=== PATIENT | female | born 1990 | race Caucasian/White ===

== ENCOUNTER 2016-10-11 22:16 | Emergency (ER) | payer OTHER ==
[2016-10-11] MEDS ORDERED: ONDANSETRON 4MG/2ML VIAL (J2405) As Ordered ONE (23:47)
[2016-10-12 00:27] LABS: MEAN CORPUSCULAR HEMOGLOBIN 24.5 pg (27.0-33.0); MEAN CORPUSCULAR HGB CONC 30.5 g/dl (32.0-36.5); MEAN CORPUSCULAR VOLUME 80.3 fl (80.0-96.0); PLATELET COUNT, AUTOMATED 335 k/mm3 (150-450); RED CELL DISTRIBUTION WIDTH 17.2 % (11.5-14.5); WHITE BLOOD COUNT 8.1 K/mm3 (4.0-10.0)
[2016-10-12 00:28] LABS: BASO % 0.9 % (0.0-1.0); EOS % 4.1 % (0.0-3.0); LYMPH % 27.5 % (24.0-44.0); MONO % 3.9 % (0.0-5.0); NEUTROPHILS % 62.6 % (36.0-66.0)
[2016-10-12 00:29] LABS: BASO # 0.1 K/mm3 (0.0-0.2); EOS # 0.3 K/mm3 (0.0-0.50); LARGE UNSTAINED CELL # 0.1 K/mm3 (0.0-0.4); LYMPH # 2.2 K/mm3 (1.5-6.5); MONO # 0.3 K/mm3 (0.0-0.8); NEUTROPHILS # 5.1 K/mm3 (1.8-7.7)
[2016-10-12 00:40] LABS: ANION GAP 9 MEQ/L (8-16); BLOOD UREA NITROGEN 11 MG/DL (7-18); CARBON DIOXIDE LEVEL 25 MEQ/L (21-32); CHLORIDE LEVEL 103 MEQ/L (98-107); CREATININE FOR GFR 0.94 MG/DL (0.55-1.02); GLOMERULAR FILTRATION RATE > 60.0 (>60); GLUCOSE, FASTING 113 MG/DL (70-105); POTASSIUM SERUM 4.4 MEQ/L (3.5-5.1); SODIUM LEVEL 137 MEQ/L (136-145)
[2016-10-12 00:41] LABS: ALBUMIN 3.3 GM/DL (3.2-5.2); ALKALINE PHOSPHATASE 63 U/L (45-117); ALT/SGPT 31 U/L (12-78); AST/SGOT 23 U/L (15-37); BILIRUBIN,DIRECT 0.2 MG/DL (0.0-0.2); CALCIUM LEVEL 8.5 MG/DL (8.5-10.1); TOTAL PROTEIN 7.4 GM/DL (6.4-8.2)
--- NOTE | 2016-10-12 02:04 | EDDOCDS ---
Physician Documentation [facility] Name: Renae Meraz Age: 26 yrs Sex: Female : 1990 Arrival Date: 10/11/2016 Time: 22:16 Bed I4 / M4 Private MD: Ana Shi ANP- Disposition: 10/12/16 01:54 Discharged to Home/Self Care. Impression: Infectious gastroenteritis and colitis, unspecified - VERSUS FOOD POISONING. - Condition is Stable. - Discharge Instructions: Diarrhea, Nausea and Vomiting. - Prescriptions for Zofran 4 mg Oral Tablet - take 1 tablet by ORAL route 4 times per day As needed; 10 tablet. - Medication Reconciliation, Work Release Form - 1 day, Local Pharmacy Hours form. - Follow up: Ana Shi; When: 1 - 2 days; Reason: Recheck today's complaints, Continuance of care. - Problem is new. - Symptoms have improved. Historical: - Allergies: No known drug Allergies; - Home Meds: 1. none - PMHx: Asthma; Depression; GERD; Heavy vaginal bleeding; Hypertension; - PSHx: ; - Social history: Smoking status: Patient uses tobacco products, current some day smoker. No barriers to communication noted, The patient speaks fluent [place], Speaks appropriately for age. - Family history: No immediate family members are acutely ill. - : The pt / caregiver states he / she is not on anticoagulants. Home medication list is obtained from the patient. - Exposure Risk Screening:: None identified. RN TRANSITIONAL: 10/11 22:21 LMP 09/05/2016 cz Vital Signs: 22:18 BP 163 / 96; Pulse 100; Resp 18 S; Temp 97.2(O); Pulse Ox 97% on R/A; Weight 210.92 kg gr2 / 465 lbs (R); Height 4 ft. 11 in. (149.86 cm) (R); Pain 6/10; 10/12 01:57 BP 135 / 71; Pulse 85; Resp 18; Temp 98.6; Pulse Ox 98% ; Pain 5/10; ajs 10/11 22:18 Body Mass Index 93.92 (210.92 kg, 149.86 cm) gr2 MDM: 10/11 23:44 NS 0.9% 1000 ml IV at bolus once ordered. le 23:44 NS 0.9% 1000 ml IV at 100 mL/hr continuous ordered. le 23:44 Ondansetron 4 mg IVP once ordered. le 23:44 IV Saline Lock ordered. le 23:44 Undress patient appropriately for examination ordered. le 23:45 Basic Metabolic Profile Ordered. EDMS 23:45 CBC with Diff Ordered. EDMS 23:45 Lipase Ordered. EDMS 23:45 Liver Profile Ordered. EDMS 23:45 NOTHING BY MOUTH+DIET ordered. EDMS 23:46 GASTROINTESTINAL (GI) PANEL Ordered. EDMS 10/12 00:20 Financial registration complete. hs2 00:31 CBC with Diff Reviewed. le 00:46 Basic Metabolic Profile Reviewed. le 00:46 Lipase Reviewed. le 00:46 Liver Profile Reviewed. le 00:46 Fluid Challenge ordered. le Administered Medications: 00:01 Drug: NS 0.9% 1000 ml [sodium chloride 0.9 % injection solution] Route: IV; Rate: dsf bolus; Site: left antecubital; 01:18 Follow up: IV Status: Completed infusion sls1 00:01 Drug: Ondansetron 4 mg [ondansetron HCl 2 mg/mL intravenous solution (2 mL)] Route: dsf IVP; Site: left antecubital; 01:18 Follow up: Response: Nausea is resolved sls1 01:18 Drug: NS 0.9% 1000 ml [sodium chloride 0.9 % intravenous solution] Route: IV; Rate: 100 sls1 mL/hr; Site: left antecubital; Signatures: Dispatcher [employer] EDLA Peter Shine RN RN cz Westcott, Lisa, CLAY BURNER CLAY BURNER Lizzeth Marmolejo RN RN sls1 Oscar Corrales, RPA-C [id number] Irish Garcia, Reg Reg hs2 Oneyda Benito RN dsf The chart was reviewed and I authenticate all verbal orders and agree with the evaluation and treatment provided.Corrections: (The following items were deleted from the chart) 10/11 23:46 23:45 GASTROINTESTINAL (GI) PANEL+RENETTA ordered. EDMS EDMS MTDD
--- NOTE | 2016-10-12 02:04 | EDDOCDS ---
Nurse's Notes [facility] Name: Renae Meraz Age: 26 yrs Sex: Female : 1990 Arrival Date: 10/11/2016 Time: 22:16 Bed I4 / M4 Private MD: Ana Shi ANP- Diagnosis: Infectious gastroenteritis and colitis, unspecified-VERSUS FOOD POISONING Presentation: 10/11 22:20 Presenting complaint: Patient states: nausea and vomiting since last night abdominal cz pain with eating. Adult Sepsis Screening: The patient does not have new or worsening altered mentation. Patient's respiratory rate is less than 22. Systolic blood pressure is greater than 100. Patient has a qSOFA score of 0- Negative Sepsis Screen. Suicide/Homicide risk assessment- the patient denies having any suicidal and/or homicidal ideations and does not present with any other emotional, behavioral or mental health complaints. Status: Patient is not a veterans service representative or dependent. Transition of care: patient was not received from another setting of care. 22:20 Acuity: JUAN Level 3 cz 22:20 Method Of Arrival: Walkin/Carried/Asstd cz Triage Assessment: 22:21 General: Appears uncomfortable. Pain: Location: abdomen Pain currently is 6 out of 10 cz on a pain scale. At worst was 10 out of 10 on a pain scale. HIV screening NA for this visit Offered previously. 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 none - PMHx: Asthma; Depression; GERD; Heavy vaginal bleeding; Hypertension; - PSHx: ; - Social history: Smoking status: Patient uses tobacco products, current some day smoker. No barriers to communication noted, The patient speaks fluent [place], Speaks appropriately for age. - Family history: No immediate family members are acutely ill. - : The pt / caregiver states he / she is not on anticoagulants. Home medication list is obtained from the patient. - Exposure Risk Screening:: None identified. Screenin/18 02:01 Screening information is obtained from the patient. Fall risk: No risks identified. sls1 Assistance ADL's: requires no assistance with activities of daily living. Abuse/DV Screen: The patient / caregiver reports he/she is: not in a situation that causes fear, pain or injury. Nutritional screening: No deficits noted. Advance Directives: Further advance directive information is declined. home support is adequate. Assessment: 00:01 Adult Sepsis Screening: The patient does not have new or worsening altered mentation. dsf Patient's respiratory rate is less than 22. Systolic blood pressure is greater than 100. Patient has a qSOFA score of 0- Negative Sepsis Screen. General: Appears in no apparent distress, Behavior is appropriate for age, cooperative. Pain: Location: abdomen Pain currently is 8 out of 10 on a pain scale. Quality of pain is described as crampy, sharp, Pain began today. Neurological: Level of Consciousness is awake, alert, Oriented to person, place, time. Cardiovascular: Capillary refill < 3 seconds. Respiratory: Airway is patent Respiratory effort is even, unlabored, Respiratory pattern is regular, symmetrical. GI: Abdomen is obese, Reports diarrhea, nausea, vomiting, Pain is 8 out of 10 on a pain scale. Derm: Skin is pink, warm & dry. 01:18 Reassessment: Patient appears in no apparent distress at this time. Patient states sls1 feeling better. IV fluids completed, pt resting at rounds denies needs or complaints will continue to assess. GI: Bowel sounds present X 4 quads. Abd is soft and non tender X 4 quads. Reports. 02:01 General: Appears in no apparent distress, Discharge instructions reviewed with pt sls1 including medication use and follow up, pt verbalizes understanding, work note given, pt d/c home via medicaid cab. Neurological: No deficits noted. Respiratory: No deficits noted. Vital Signs: 10/11 22:18 BP 163 / 96; Pulse 100; Resp 18 S; Temp 97.2(O); Pulse Ox 97% on R/A; Weight 210.92 kg gr2 (R); Height 4 ft. 11 in. (149.86 cm) (R); Pain 6/10; 10/12 01:57 BP 135 / 71; Pulse 85; Resp 18; Temp 98.6; Pulse Ox 98% ; Pain 5/10; ajs 10/11 22:18 Body Mass Index 93.92 (210.92 kg, 149.86 cm) gr2 Vitals: 10/11 22:18 Log In Time: October 11, 2016 at 22:18. gr2 ED Course: 22:18 Patient visited by Annika Wilkerson. gr2 22:18 Ana Shi is Private Physician. gr2 22:18 Patient moved to Waiting gr2 22:19 Patient visited by Annika Wilkerson. gr2 22:19 Patient moved to Pre RCE gr2 22:21 Triage Initiated cz 23:38 Angela Rosenthal FNP is PHCP. le 23:38 Patient moved to Triage 3 af2 23:40 Patient visited by Angela Rosenthal FNP. le 23:40 Patient visited by Angela Rosenthal FNP. le 23:44 Patient moved to I4 / M4 sls1 10/12 00:01 Basic Metabolic Profile Sent. dsf 00:01 CBC with Diff Sent. dsf 00:01 Liver Profile Sent. dsf 00:01 Lipase Sent. dsf 00:02 Patient visited by Oneyda Benito RN. dsf 00:02 Inserted saline lock: 20 gauge in left antecubital area The patient tolerated the dsf procedure well. 01:02 PHCP role handed off by Angela Rosenthal FNP ck7 01:02 Oscar Corrales RPA-C is PHCP. ck7 01:02 Bryan Fontana DO is Attending Physician. ck7 01:06 Patient visited by Oscar Corrales RPA-C. ck7 01:19 Patient visited by Lizzeth Murray RN. sls1 01:53 Patient visited by Oscar Corrales RPA-C. ck7 01:54 Ana Shi is Referral Physician. ck7 01:57 Patient visited by Tiffanie Stewart. ajs 02:01 The patient / caregiver is instructed regarding the plan of care and ED course. Patient sls1 has correct armband on for positive identification. Placed in gown. 02:01 Discontinued lock intact, bleeding controlled, pressure dressing applied, No sls1 redness/swelling at site. No procedures done that require assistance. Administered Medications: 00:01 Drug: NS 0.9% 1000 ml [sodium chloride 0.9 % injection solution] Route: IV; Rate: dsf bolus; Site: left antecubital; :18 Follow up: IV Status: Completed infusion sls1 00:01 Drug: Ondansetron 4 mg [ondansetron HCl 2 mg/mL intravenous solution (2 mL)] Route: dsf IVP; Site: left antecubital; 01:18 Follow up: Response: Nausea is resolved sls1 01:18 Drug: NS 0.9% 1000 ml [sodium chloride 0.9 % intravenous solution] Route: IV; Rate: 100 sls1 mL/hr; Site: left antecubital; Order Results: Lab Order: Basic Metabolic Profile; SPEC'M 10/11/16 23:59 Test: GLUCOSE, FASTING; Value: 113; Range: 70-105; Abnormal: Above high normal; Units: MG/DL; Status: F Test: BLOOD UREA NITROGEN; Value: 11; Range: 7-18; Units: MG/DL; Status: F Test: CREATININE FOR GFR; Value: 0.94; Range: 0.55-1.02; Units: MG/DL; Status: F Test: GLOMERULAR FILTRATION RATE; Value: > 60.0; Range: >60; Status: F Test: SODIUM LEVEL; Value: 137; Range: 136-145; Units: MEQ/L; Status: F Test: POTASSIUM SERUM; Value: 4.4; Range: 3.5-5.1; Units: MEQ/L; Status: F Test: CHLORIDE LEVEL; Value: 103; Range: 98-107; Units: MEQ/L; Status: F Test: CARBON DIOXIDE LEVEL; Value: 25; Range: 21-32; Units: MEQ/L; Status: F Test: ANION GAP; Value: 9; Range: 8-16; Units: MEQ/L; Status: F Test: CALCIUM LEVEL; Value: 8.5; Range: 8.5-10.1; Units: MG/DL; Status: F Test Note: ; Units are mL/min/1.73 m2 Chronic Kidney Disease Staging per NKF: Stage I & II GFR >=60 Normal to Mildly Decreased Stage III GFR 30-59 Moderately Decreased Stage IV GFR 15-29 Severely Decreased Stage V GFR <15 Very Little GFR Left ESRD GFR <15 on CANTEEN ATTENDANT Lab Order: CBC with Diff; SPEC'M 10/11/16 23:59 Test: WHITE BLOOD COUNT; Value: 8.1; Range: 4.0-10.0; Units: K/mm3; Status: F Test: RED BLOOD COUNT; Value: 5.19; Range: 4.00-5.40; Units: M/mm3; Status: F Test: HEMOGLOBIN; Value: 12.7; Range: 12.0-16.0; Units: g/dl; Status: F Test: HEMATOCRIT; Value: 41.7; Range: 36.0-47.0; Units: %; Status: F Test: MEAN CORPUSCULAR VOLUME; Value: 80.3; Range: 80.0-96.0; Units: fl; Status: F Test: MEAN CORPUSCULAR HEMOGLOBIN; Value: 24.5; Range: 27.0-33.0; Abnormal: Below low normal; Units: pg; Status: F Test: MEAN CORPUSCULAR HGB CONC; Value: 30.5; Range: 32.0-36.5; Abnormal: Below low normal; Units: g/dl; Status: F Test: RED CELL DISTRIBUTION WIDTH; Value: 17.2; Range: 11.5-14.5; Abnormal: Above high normal; Units: %; Status: F Test: PLATELET COUNT, AUTOMATED; Value: 335; Range: 150-450; Units: k/mm3; Status: F Test: NEUTROPHILS %; Value: 62.6; Range: 36.0-66.0; Units: %; Status: F Test: LYMPH %; Value: 27.5; Range: 24.0-44.0; Units: %; Status: F Test: MONO %; Value: 3.9; Range: 0.0-5.0; Units: %; Status: F Test: EOS %; Value: 4.1; Range: 0.0-3.0; Abnormal: Above high normal; Units: %; Status: F Test: BASO %; Value: 0.9; Range: 0.0-1.0; Units: %; Status: F Test: LARGE UNSTAINED CELL %; Value: 1.0; Range: 0.0-4.0; Units: %; Status: F Test: NEUTROPHILS #; Value: 5.1; Range: 1.8-7.7; Units: K/mm3; Status: F Test: LYMPH #; Value: 2.2; Range: 1.5-6.5; Units: K/mm3; Status: F Test: MONO #; Value: 0.3; Range: 0.0-0.8; Units: K/mm3; Status: F Test: EOS #; Value: 0.3; Range: 0.0-0.50; Units: K/mm3; Status: F Test: BASO #; Value: 0.1; Range: 0.0-0.2; Units: K/mm3; Status: F Test: LARGE UNSTAINED CELL #; Value: 0.1; Range: 0.0-0.4; Units: K/mm3; Status: F Lab Order: Lipase; SPEC'M 10/11/16 23:59 Test: LIPASE; Value: 63; Range: 73-393; Abnormal: Below low normal; Units: U/L; Status: F Lab Order: Liver Profile; SPEC'M 10/11/16 23:59 Test: AST/SGOT; Value: 23; Range: 15-37; Units: U/L; Status: F Test: ALT/SGPT; Value: 31; Range: 12-78; Units: U/L; Status: F Test: ALKALINE PHOSPHATASE; Value: 63; Range: 45-117; Units: U/L; Status: F Test: BILIRUBIN,TOTAL; Value: 1.0; Range: 0.2-1.0; Units: MG/DL; Status: F Test: BILIRUBIN,DIRECT; Value: 0.2; Range: 0.0-0.2; Units: MG/DL; Status: F Test: TOTAL PROTEIN; Value: 7.4; Range: 6.4-8.2; Units: GM/DL; Status: F Test: ALBUMIN; Value: 3.3; Range: 3.2-5.2; Units: GM/DL; Status: F Test: ALBUMIN/GLOBULIN RATIO; Value: 0.80; Range: 1.00-1.93; Abnormal: Below low normal; Status: F Outcome: 01:54 Discharge ordered by Provider. ck7 02:01 Discharge Assessment: Patient awake, alert and oriented x 3. No cognitive and/or sls1 functional deficits noted. Patient verbalized understanding of disposition instructions. patient administered narcotics - no. The following High Risk Discharge criteria are identified: None. Discharged to home via medicaid cab. Condition: stable. Discharge instructions given to patient, Instructed on discharge instructions, follow up and referral plans. medication usage, Demonstrated understanding of instructions, medications, Pt was receptive of discharge instructions/ teaching. Prescriptions given X 1, Work note provided to patient. No special radiology studies were completed. Property :Personal belongings accompany Pt. 02:03 Patient left the ED. sls1 Signatures: Peter Shine, RN RN Angela Jose, SENIOR LINUX UNIX ENGINEER Oneyda Mauro,RN RN Tiffanie Farmer Shannon RN RN sls1 Oscar Corrales, RPA-C [id number] Annika Wilkerson 2 Kadie LenzRN RN af2 MTDD
--- NOTE | 2016-10-14 03:04 | EDDOCDS ---
Nurse's Notes [facility] Name: Renae Meraz Age: 26 yrs Sex: Female : 1990 Arrival Date: 10/11/2016 Time: 22:16 Bed I4 / M4 Private MD: Ana Shi ANP- Diagnosis: Infectious gastroenteritis and colitis, unspecified-VERSUS FOOD POISONING Presentation: 10/11 22:20 Presenting complaint: Patient states: nausea and vomiting since last night abdominal cz pain with eating. Adult Sepsis Screening: The patient does not have new or worsening altered mentation. Patient's respiratory rate is less than 22. Systolic blood pressure is greater than 100. Patient has a qSOFA score of 0- Negative Sepsis Screen. Suicide/Homicide risk assessment- the patient denies having any suicidal and/or homicidal ideations and does not present with any other emotional, behavioral or mental health complaints. Status: Patient is not a patient services rep or dependent. Transition of care: patient was not received from another setting of care. 22:20 Acuity: JUAN Level 3 cz 22:20 Method Of Arrival: Walkin/Carried/Asstd cz Triage Assessment: 22:21 General: Appears uncomfortable. Pain: Location: abdomen Pain currently is 6 out of 10 cz on a pain scale. At worst was 10 out of 10 on a pain scale. HIV screening NA for this visit Offered previously. 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 none - PMHx: Asthma; Depression; GERD; Heavy vaginal bleeding; Hypertension; - PSHx: ; - Social history: Smoking status: Patient uses tobacco products, current some day smoker. No barriers to communication noted, The patient speaks fluent Irish, Speaks appropriately for age. - Family history: No immediate family members are acutely ill. - : The pt / caregiver states he / she is not on anticoagulants. Home medication list is obtained from the patient. - Exposure Risk Screening:: None identified. Screenin/18 02:01 Screening information is obtained from the patient. Fall risk: No risks identified. sls1 Assistance ADL's: requires no assistance with activities of daily living. Abuse/DV Screen: The patient / caregiver reports he/she is: not in a situation that causes fear, pain or injury. Nutritional screening: No deficits noted. Advance Directives: Further advance directive information is declined. home support is adequate. Assessment: 00:01 Adult Sepsis Screening: The patient does not have new or worsening altered mentation. dsf Patient's respiratory rate is less than 22. Systolic blood pressure is greater than 100. Patient has a qSOFA score of 0- Negative Sepsis Screen. General: Appears in no apparent distress, Behavior is appropriate for age, cooperative. Pain: Location: abdomen Pain currently is 8 out of 10 on a pain scale. Quality of pain is described as crampy, sharp, Pain began today. Neurological: Level of Consciousness is awake, alert, Oriented to person, place, time. Cardiovascular: Capillary refill < 3 seconds. Respiratory: Airway is patent Respiratory effort is even, unlabored, Respiratory pattern is regular, symmetrical. GI: Abdomen is obese, Reports diarrhea, nausea, vomiting, Pain is 8 out of 10 on a pain scale. Derm: Skin is pink, warm & dry. 01:18 Reassessment: Patient appears in no apparent distress at this time. Patient states sls1 feeling better. IV fluids completed, pt resting at rounds denies needs or complaints will continue to assess. GI: Bowel sounds present X 4 quads. Abd is soft and non tender X 4 quads. Reports. 02:01 General: Appears in no apparent distress, Discharge instructions reviewed with pt sls1 including medication use and follow up, pt verbalizes understanding, work note given, pt d/c home via medicaid cab. Neurological: No deficits noted. Respiratory: No deficits noted. Vital Signs: 10/11 22:18 BP 163 / 96; Pulse 100; Resp 18 S; Temp 97.2(O); Pulse Ox 97% on R/A; Weight 210.92 kg gr2 (R); Height 4 ft. 11 in. (149.86 cm) (R); Pain 6/10; 10/12 01:57 BP 135 / 71; Pulse 85; Resp 18; Temp 98.6; Pulse Ox 98% ; Pain 5/10; ajs 10/11 22:18 Body Mass Index 93.92 (210.92 kg, 149.86 cm) gr2 Vitals: 10/11 22:18 Log In Time: October 11, 2016 at 22:18. gr2 ED Course: 22:18 Patient visited by Annika Wilkerson. gr2 22:18 Ana Shi is Private Physician. gr2 22:18 Patient moved to Waiting gr2 22:19 Patient visited by Annika Wilkerson. gr2 22:19 Patient moved to Pre RCE gr2 22:21 Triage Initiated cz 23:38 Angela Rosenthal FNP is PHCP. le 23:38 Patient moved to Triage 3 af2 23:40 Patient visited by Angela Rosenthal FNP. le 23:40 Patient visited by Angela Rosenthal FNP. le 23:44 Patient moved to I4 / M4 sls1 10/12 00:01 Basic Metabolic Profile Sent. dsf 00:01 CBC with Diff Sent. dsf 00:01 Liver Profile Sent. dsf 00:01 Lipase Sent. dsf 00:02 Patient visited by Oneyda Benito RN. dsf 00:02 Inserted saline lock: 20 gauge in left antecubital area The patient tolerated the dsf procedure well. 01:02 PHCP role handed off by Angela Rosenthal FNP ck7 01:02 Oscar Corrales RPA-C is PHCP. ck7 01:02 Bryan Fontana DO is Attending Physician. ck7 01:06 Patient visited by Oscar Corrales RPA-C. ck7 01:19 Patient visited by Lizzeth Murray RN. sls1 01:53 Patient visited by Oscar Corrales RPA-C. ck7 01:54 Ana Shi is Referral Physician. ck7 01:57 Patient visited by Tiffanie Stewart. ajs 02:01 The patient / caregiver is instructed regarding the plan of care and ED course. Patient sls1 has correct armband on for positive identification. Placed in gown. 02:01 Discontinued lock intact, bleeding controlled, pressure dressing applied, No sls1 redness/swelling at site. No procedures done that require assistance. 04:10 [place] [place] Agreement was scanned into [employer] and attached to record. hs2 09:17 T-Sheet-- Draft Copy was scanned into [employer] and attached to record. gb Administered Medications: 00:01 Drug: NS 0.9% 1000 ml [sodium chloride 0.9 % injection solution] Route: IV; Rate: dsf bolus; Site: left antecubital; 01:18 Follow up: IV Status: Completed infusion 00:01 Drug: Ondansetron 4 mg [ondansetron HCl 2 mg/mL intravenous solution (2 mL)] Route: dsf IVP; Site: left antecubital; :18 Follow up: Response: Nausea is resolved :18 Drug: NS 0.9% 1000 ml [sodium chloride 0.9 % intravenous solution] Route: IV; Rate: 100 sls1 mL/hr; Site: left antecubital; Order Results: Lab Order: Basic Metabolic Profile; SPEC'M 10/11/16 23:59 Test: GLUCOSE, FASTING; Value: 113; Range: 70-105; Abnormal: Above high normal; Units: MG/DL; Status: F Test: BLOOD UREA NITROGEN; Value: 11; Range: 7-18; Units: MG/DL; Status: F Test: CREATININE FOR GFR; Value: 0.94; Range: 0.55-1.02; Units: MG/DL; Status: F Test: GLOMERULAR FILTRATION RATE; Value: > 60.0; Range: >60; Status: F Test: SODIUM LEVEL; Value: 137; Range: 136-145; Units: MEQ/L; Status: F Test: POTASSIUM SERUM; Value: 4.4; Range: 3.5-5.1; Units: MEQ/L; Status: F Test: CHLORIDE LEVEL; Value: 103; Range: 98-107; Units: MEQ/L; Status: F Test: CARBON DIOXIDE LEVEL; Value: 25; Range: 21-32; Units: MEQ/L; Status: F Test: ANION GAP; Value: 9; Range: 8-16; Units: MEQ/L; Status: F Test: CALCIUM LEVEL; Value: 8.5; Range: 8.5-10.1; Units: MG/DL; Status: F Test Note: ; Units are mL/min/1.73 m2 Chronic Kidney Disease Staging per NKF: Stage I & II GFR >=60 Normal to Mildly Decreased Stage III GFR 30-59 Moderately Decreased Stage IV GFR 15-29 Severely Decreased Stage V GFR <15 Very Little GFR Left ESRD GFR <15 on PHOTO STYLIST Lab Order: CBC with Diff; SPEC'M 10/11/16 23:59 Test: WHITE BLOOD COUNT; Value: 8.1; Range: 4.0-10.0; Units: K/mm3; Status: F Test: RED BLOOD COUNT; Value: 5.19; Range: 4.00-5.40; Units: M/mm3; Status: F Test: HEMOGLOBIN; Value: 12.7; Range: 12.0-16.0; Units: g/dl; Status: F Test: HEMATOCRIT; Value: 41.7; Range: 36.0-47.0; Units: %; Status: F Test: MEAN CORPUSCULAR VOLUME; Value: 80.3; Range: 80.0-96.0; Units: fl; Status: F Test: MEAN CORPUSCULAR HEMOGLOBIN; Value: 24.5; Range: 27.0-33.0; Abnormal: Below low normal; Units: pg; Status: F Test: MEAN CORPUSCULAR HGB CONC; Value: 30.5; Range: 32.0-36.5; Abnormal: Below low normal; Units: g/dl; Status: F Test: RED CELL DISTRIBUTION WIDTH; Value: 17.2; Range: 11.5-14.5; Abnormal: Above high normal; Units: %; Status: F Test: PLATELET COUNT, AUTOMATED; Value: 335; Range: 150-450; Units: k/mm3; Status: F Test: NEUTROPHILS %; Value: 62.6; Range: 36.0-66.0; Units: %; Status: F Test: LYMPH %; Value: 27.5; Range: 24.0-44.0; Units: %; Status: F Test: MONO %; Value: 3.9; Range: 0.0-5.0; Units: %; Status: F Test: EOS %; Value: 4.1; Range: 0.0-3.0; Abnormal: Above high normal; Units: %; Status: F Test: BASO %; Value: 0.9; Range: 0.0-1.0; Units: %; Status: F Test: LARGE UNSTAINED CELL %; Value: 1.0; Range: 0.0-4.0; Units: %; Status: F Test: NEUTROPHILS #; Value: 5.1; Range: 1.8-7.7; Units: K/mm3; Status: F Test: LYMPH #; Value: 2.2; Range: 1.5-6.5; Units: K/mm3; Status: F Test: MONO #; Value: 0.3; Range: 0.0-0.8; Units: K/mm3; Status: F Test: EOS #; Value: 0.3; Range: 0.0-0.50; Units: K/mm3; Status: F Test: BASO #; Value: 0.1; Range: 0.0-0.2; Units: K/mm3; Status: F Test: LARGE UNSTAINED CELL #; Value: 0.1; Range: 0.0-0.4; Units: K/mm3; Status: F Lab Order: Lipase; SPEC'M 10/11/16 23:59 Test: LIPASE; Value: 63; Range: 73-393; Abnormal: Below low normal; Units: U/L; Status: F Lab Order: Liver Profile; SPEC'M 10/11/16 23:59 Test: AST/SGOT; Value: 23; Range: 15-37; Units: U/L; Status: F Test: ALT/SGPT; Value: 31; Range: 12-78; Units: U/L; Status: F Test: ALKALINE PHOSPHATASE; Value: 63; Range: 45-117; Units: U/L; Status: F Test: BILIRUBIN,TOTAL; Value: 1.0; Range: 0.2-1.0; Units: MG/DL; Status: F Test: BILIRUBIN,DIRECT; Value: 0.2; Range: 0.0-0.2; Units: MG/DL; Status: F Test: TOTAL PROTEIN; Value: 7.4; Range: 6.4-8.2; Units: GM/DL; Status: F Test: ALBUMIN; Value: 3.3; Range: 3.2-5.2; Units: GM/DL; Status: F Test: ALBUMIN/GLOBULIN RATIO; Value: 0.80; Range: 1.00-1.93; Abnormal: Below low normal; Status: F Outcome: 01:54 Discharge ordered by Provider. ck7 02:01 Discharge Assessment: Patient awake, alert and oriented x 3. No cognitive and/or sls1 functional deficits noted. Patient verbalized understanding of disposition instructions. patient administered narcotics - no. The following High Risk Discharge criteria are identified: None. Discharged to home via medicaid cab. Condition: stable. Discharge instructions given to patient, Instructed on discharge instructions, follow up and referral plans. medication usage, Demonstrated understanding of instructions, medications, Pt was receptive of discharge instructions/ teaching. Prescriptions given X 1, Work note provided to patient. No special radiology studies were completed. Property :Personal belongings accompany Pt. 02:03 Patient left the ED. sls1 Signatures: Peter Shine, RN RN cz Nguyen Guzman, Reg Reg gb Angela Rosenthal FNP FNP le Fuller, Desiree,RN RN dsTiffanie Eaton Shannon, RN RN sls1 Oscar Corrales, RPA-C RPA-Cck7 Annika Wilkerson gr2 Kadie Lenz RN RN af2 Irish Garcia, Reg Reg hs2 Chart Complete MTDD
--- NOTE | 2016-10-14 03:04 | EDDOCDS ---
Physician Documentation [facility] Name: Renae Meraz Age: 26 yrs Sex: Female : 1990 Arrival Date: 10/11/2016 Time: 22:16 Bed I4 / M4 Private MD: Ana Shi ANP- Disposition: 10/12/16 01:54 Discharged to Home/Self Care. Impression: Infectious gastroenteritis and colitis, unspecified - VERSUS FOOD POISONING. - Condition is Stable. - Discharge Instructions: Diarrhea, Nausea and Vomiting. - Prescriptions for Zofran 4 mg Oral Tablet - take 1 tablet by ORAL route 4 times per day As needed; 10 tablet. - Medication Reconciliation, Work Release Form - 1 day, Local Pharmacy Hours form. - Follow up: Ana Shi; When: 1 - 2 days; Reason: Recheck today's complaints, Continuance of care. - Problem is new. - Symptoms have improved. Historical: - Allergies: No known drug Allergies; - Home Meds: 1. none - PMHx: Asthma; Depression; GERD; Heavy vaginal bleeding; Hypertension; - PSHx: ; - Social history: Smoking status: Patient uses tobacco products, current some day smoker. No barriers to communication noted, The patient speaks fluent Italian, Speaks appropriately for age. - Family history: No immediate family members are acutely ill. - : The pt / caregiver states he / she is not on anticoagulants. Home medication list is obtained from the patient. - Exposure Risk Screening:: None identified. 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 11 in. (149.86 cm) (R); Pain 6/10; 10/12 01:57 BP 135 / 71; Pulse 85; Resp 18; Temp 98.6; Pulse Ox 98% ; Pain 5/10; ajs 10/11 22:18 Body Mass Index 93.92 (210.92 kg, 149.86 cm) gr2 MDM: 10/11 23:44 NS 0.9% 1000 ml IV at bolus once ordered. le 23:44 NS 0.9% 1000 ml IV at 100 mL/hr continuous ordered. le 23:44 Ondansetron 4 mg IVP once ordered. le 23:44 IV Saline Lock ordered. le 23:44 Undress patient appropriately for examination ordered. le 23:45 Basic Metabolic Profile Ordered. EDMS 23:45 CBC with Diff Ordered. EDMS 23:45 Lipase Ordered. EDMS 23:45 Liver Profile Ordered. EDMS 23:45 NOTHING BY MOUTH+DIET ordered. EDMS 23:46 GASTROINTESTINAL (GI) PANEL Ordered. EDMS 10/12 00:20 Financial registration complete. hs2 00:31 CBC with Diff Reviewed. le 00:46 Basic Metabolic Profile Reviewed. le 00:46 Lipase Reviewed. le 00:46 Liver Profile Reviewed. le 00:46 Fluid Challenge ordered. le 04:10 [facility] Payment Agreement was scanned into [employer] and attached to record. hs2 09:17 T-Sheet-- Draft Copy was scanned into [employer] and attached to record. gb Administered Medications: 00:01 Drug: NS 0.9% 1000 ml [sodium chloride 0.9 % injection solution] Route: IV; Rate: dsf bolus; Site: left antecubital; :18 Follow up: IV Status: Completed infusion sls1 00:01 Drug: Ondansetron 4 mg [ondansetron HCl 2 mg/mL intravenous solution (2 mL)] Route: dsf IVP; Site: left antecubital; :18 Follow up: Response: Nausea is resolved sls1 01:18 Drug: NS 0.9% 1000 ml [sodium chloride 0.9 % intravenous solution] Route: IV; Rate: 100 sls1 mL/hr; Site: left antecubital; Signatures: Dispatcher [employer] EDNY ePter Shine, Nguyen Bui RN, Reg Reg gb Angela Rosenthal, DIP BRAZIER Lizzeth Turcios RN RN sls1 Oscar Corrales, GUILLERMO-C RPA-Cck7 Irish Garcia, Reg Reg hs2 Oenyda Benito RN dsf The chart was reviewed and I authenticate all verbal orders and agree with the evaluation and treatment provided.Corrections: (The following items were deleted from the chart) 10/11 23:46 23:45 GASTROINTESTINAL (GI) PANEL+RENETTA ordered. EDMS EDMS Attachments: 10/12 04:10 [place] Payment Agreement hs2 09:17 T-Sheet-- Draft Copy gb Chart Complete MTDD
--- NOTE | 2016-10-14 03:04 | EDDOCDS ---
Physician Documentation [facility] Name: Renae Meraz Age: 26 yrs Sex: Female : 1990 Arrival Date: 10/11/2016 Time: 22:16 Bed I4 / M4 Private MD: Ana Shi ANP- Disposition: 10/12/16 01:54 Discharged to Home/Self Care. Impression: Infectious gastroenteritis and colitis, unspecified - VERSUS FOOD POISONING. - Condition is Stable. - Discharge Instructions: Diarrhea, Nausea and Vomiting. - Prescriptions for Zofran 4 mg Oral Tablet - take 1 tablet by ORAL route 4 times per day As needed; 10 tablet. - Medication Reconciliation, Work Release Form - 1 day, Local Pharmacy Hours form. - Follow up: Ana Shi; When: 1 - 2 days; Reason: Recheck today's complaints, Continuance of care. - Problem is new. - Symptoms have improved. Historical: - Allergies: No known drug Allergies; - Home Meds: 1. none - PMHx: Asthma; Depression; GERD; Heavy vaginal bleeding; Hypertension; - PSHx: ; - Social history: Smoking status: Patient uses tobacco products, current some day smoker. No barriers to communication noted, The patient speaks fluent Khmer, Speaks appropriately for age. - Family history: No immediate family members are acutely ill. - : The pt / caregiver states he / she is not on anticoagulants. Home medication list is obtained from the patient. - Exposure Risk Screening:: None identified. 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 11 in. (149.86 cm) (R); Pain 6/10; 10/12 01:57 BP 135 / 71; Pulse 85; Resp 18; Temp 98.6; Pulse Ox 98% ; Pain 5/10; ajs 10/11 22:18 Body Mass Index 93.92 (210.92 kg, 149.86 cm) gr2 MDM: 10/11 23:44 NS 0.9% 1000 ml IV at bolus once ordered. le 23:44 NS 0.9% 1000 ml IV at 100 mL/hr continuous ordered. le 23:44 Ondansetron 4 mg IVP once ordered. le 23:44 IV Saline Lock ordered. le 23:44 Undress patient appropriately for examination ordered. le 23:45 Basic Metabolic Profile Ordered. EDMS 23:45 CBC with Diff Ordered. EDMS 23:45 Lipase Ordered. EDMS 23:45 Liver Profile Ordered. EDMS 23:45 NOTHING BY MOUTH+DIET ordered. EDMS 23:46 GASTROINTESTINAL (GI) PANEL Ordered. EDMS 10/12 00:20 Financial registration complete. hs2 00:31 CBC with Diff Reviewed. le 00:46 Basic Metabolic Profile Reviewed. le 00:46 Lipase Reviewed. le 00:46 Liver Profile Reviewed. le 00:46 Fluid Challenge ordered. le 04:10 [facility] Payment Agreement was scanned into [employer] and attached to record. hs2 09:17 T-Sheet-- Draft Copy was scanned into [employer] and attached to record. gb Administered Medications: 00:01 Drug: NS 0.9% 1000 ml [sodium chloride 0.9 % injection solution] Route: IV; Rate: dsf bolus; Site: left antecubital; :18 Follow up: IV Status: Completed infusion sls1 00:01 Drug: Ondansetron 4 mg [ondansetron HCl 2 mg/mL intravenous solution (2 mL)] Route: dsf IVP; Site: left antecubital; :18 Follow up: Response: Nausea is resolved sls1 01:18 Drug: NS 0.9% 1000 ml [sodium chloride 0.9 % intravenous solution] Route: IV; Rate: 100 sls1 mL/hr; Site: left antecubital; Signatures: Dispatcher [employer] EDAL Peter Shine, Nguyen Bui RN, Reg Reg gb Angela Rosenthal, EQUIPMENT TECH Lizzeth Turcios RN RN sls1 Oscar Corrales, GUILLERMO-C RPA-Cck7 Irish Garcia, Reg Reg hs2 Oneyda Benito RN dsf The chart was reviewed and I authenticate all verbal orders and agree with the evaluation and treatment provided.Corrections: (The following items were deleted from the chart) 10/11 23:46 23:45 GASTROINTESTINAL (GI) PANEL+RENETTA ordered. EDMS EDMS Attachments: 10/12 04:10 [place] [place] Payment Agreement hs2 09:17 T-Sheet-- Draft Copy gb Chart Complete MTDD
== END 2016-10-12 02:03 | disposition home or self-care (01) ==
LOC: M ED 22:16
DX: K52.9 Noninfective gastroenteritis and colitis, unspecified (principal); J45.909 Unspecified asthma, uncomplicated; F32.9 Major depressive disorder, single episode, unspecified; K21.9 Gastro-esophageal reflux disease without esophagitis; I10 Essential (primary) hypertension; N93.9 Abnormal uterine and vaginal bleeding, unspecified; Z72.0 Tobacco use
CPT/HCPCS: 80048; 80076; 83690; 85025; 96361; 96374; 99284; J2405

== ENCOUNTER 2016-12-12 10:39 | Emergency (ER) | payer OTHER ==
[~2016-12-12] VITALS: Ht 180.3 cm; Wt 208.7 kg
[2016-12-12] MEDS ORDERED: PROT1TAB2 PO (10:53)
[2016-12-12] MEDS ORDERED: NORCO, ANEXSIA 5/325MG TABLET (HYDROcodone/ACETAMINOPHEN) PO ONE (12:45)
[2016-12-12] MEDS ORDERED: ONDANSETRON 4 MG ORAL DISINTEGRATING TAB (S0181) PO ONE (12:45)
[2016-12-12 13:14] LABS: BASO % 0.4 % (0.0-1.0); EOS # 0.3 K/mm3 (0.0-0.50); EOS % 4.1 % (0.0-3.0); LARGE UNSTAINED CELL # 0.1 K/mm3 (0.0-0.4); LARGE UNSTAINED CELL % 1.1 % (0.0-4.0); LYMPH # 2.5 K/mm3 (1.5-6.5); LYMPH % 28.4 % (24.0-44.0); MEAN CORPUSCULAR HEMOGLOBIN 25.9 pg (27.0-33.0); MEAN CORPUSCULAR HGB CONC 32.2 g/dl (32.0-36.5); MEAN CORPUSCULAR VOLUME 80.4 fl (80.0-96.0); MONO # 0.3 K/mm3 (0.0-0.8); MONO % 3.3 % (0.0-5.0); NEUTROPHILS # 5.3 K/mm3 (1.8-7.7); NEUTROPHILS % 62.7 % (36.0-66.0); PLATELET COUNT, AUTOMATED 293 k/mm3 (150-450); RED CELL DISTRIBUTION WIDTH 15.8 % (11.5-14.5); WHITE BLOOD COUNT 8.4 K/mm3 (4.0-10.0)
[2016-12-12 13:42] LABS: ALBUMIN 3.3 GM/DL (3.2-5.2); ALBUMIN/GLOBULIN RATIO 0.72 (1.00-1.93); ALKALINE PHOSPHATASE 59 U/L (45-117); ALT/SGPT 32 U/L (12-78); AMYLASE 22 U/L (25-115); ANION GAP 5 MEQ/L (8-16); AST/SGOT 20 U/L (15-37); BILIRUBIN,DIRECT 0.1 MG/DL (0.0-0.2); BILIRUBIN,TOTAL 0.6 MG/DL (0.2-1.0); BLOOD UREA NITROGEN 10 MG/DL (7-18); CALCIUM LEVEL 8.6 MG/DL (8.5-10.1); CARBON DIOXIDE LEVEL 28 MEQ/L (21-32); CHLORIDE LEVEL 104 MEQ/L (98-107); CREATININE FOR GFR 0.79 MG/DL (0.55-1.02); GLOMERULAR FILTRATION RATE > 60.0 (>60); GLUCOSE, FASTING 118 MG/DL (70-105); POTASSIUM SERUM 4.2 MEQ/L (3.5-5.1); SODIUM LEVEL 137 MEQ/L (136-145); TOTAL PROTEIN 7.9 GM/DL (6.4-8.2)
--- NOTE | 2016-12-12 13:50 | REP ---
Clinical: Right upper quadrant pain. Comparison: 03/21/2016. Findings: Fatty infiltration to the liver is appreciated. The pancreas is incompletely evaluated. The gallbladder demonstrates a non mobile gallstone at the neck measuring roughly 17 mm without obvious wall thickening or pericholecystic fluid. No biliary ductal dilatation is appreciated and the common bile duct measures 6 mm diameter. Right kidney is normal in reniform shape without hydronephrosis and measures 11.2 x 5.3 x 4.7 cm. Impression: 1. Fatty infiltration to the liver. 2. A 17 mm gallstone at the neck of the gallbladder without secondary signs to suggest acute cholecystitis by ultrasound. Signed by Manohar Hogan MD 12/12/2016 01:41 P
[2016-12-12] MEDS ORDERED: ZOFR4TAB3 PO (13:59)
[2016-12-12 14:11] VITALS: BP 145/72
== END 2016-12-12 14:15 | disposition home or self-care (01) ==
LOC: M ED 12:30
DX: K80.20 Calculus of gallbladder without cholecystitis without obstruction (principal); K21.9 Gastro-esophageal reflux disease without esophagitis; J45.909 Unspecified asthma, uncomplicated; F32.9 Major depressive disorder, single episode, unspecified; Z87.440 Personal history of urinary (tract) infections; F17.210 Nicotine dependence, cigarettes, uncomplicated

== ENCOUNTER 2017-03-27 12:33 | Emergency (ER) | payer OTHER ==
[~2017-03-27] VITALS: Ht 180.3 cm; Wt 230.1 kg
[2017-03-27 12:33] VITALS: BP 159/90
[~2017-03-27 12:33] MED LIST: PROT1TAB2 PO; ZOFR4TAB3 PO
[2017-03-27] MEDS ORDERED: LISI20TA PO (12:38)
[2017-03-27] MEDS ORDERED: NORV5TAB PO (12:38)
[2017-03-27] MEDS ORDERED: PROTPAK PO (12:38)
[2017-03-27] MEDS ORDERED: IBUPROFEN 600 MG TAB PO ONE (13:15)
== END 2017-03-27 13:51 | disposition left against medical advice (07) ==
LOC: M ED 12:33
DX: S99.921A Unspecified injury of right foot, initial encounter (principal); W51.XXXA Accidental striking against or bumped into by another person, initial encounter; Y92.009 Unspecified place in unspecified non-institutional (private) residence as the place of occurrence of the external cause; Y93.89 Activity, other specified; Y99.8 Other external cause status; I10 Essential (primary) hypertension; F17.210 Nicotine dependence, cigarettes, uncomplicated; Z79.899 Other long term (current) drug therapy

== ENCOUNTER 2017-04-04 23:54 | Emergency (ER) | payer OTHER ==
[~2017-04-04] VITALS: Ht 180.3 cm; Wt 228.4 kg
[~2017-04-04 23:54] MED LIST changes: +LISI20TA PO; +NORV5TAB PO; +PROTPAK PO
[2017-04-05] MEDS ORDERED: TRAM50TA2 (00:26)
[2017-04-05] MEDS ORDERED: PANT40TA2 (00:26)
[2017-04-05] MEDS ORDERED: ALBU17IN (00:26)
[2017-04-05] MEDS ORDERED: ONDANSETRON 4MG/2ML VIAL (J2405) IV ONE (01:30)
[2017-04-05] MEDS ORDERED: MORPHINE 4 MG/ML 1ML SYRINGE IV PRN (01:30)
[2017-04-05] MEDS ORDERED: DICYCLOMINE 10 MG CAP PO ONE (01:30)
[2017-04-05] MEDS ORDERED: NS 1,000 ML IV ONE (01:30)
[2017-04-05 01:42] LABS: BASO # 0.1 K/mm3 (0.0-0.2); BASO % 0.8 % (0.0-1.0); EOS # 0.3 K/mm3 (0.0-0.50); EOS % 3.6 % (0.0-3.0); LARGE UNSTAINED CELL # 0.1 K/mm3 (0.0-0.4); LARGE UNSTAINED CELL % 1.6 % (0.0-4.0); LYMPH % 39.3 % (24.0-44.0); MEAN CORPUSCULAR HEMOGLOBIN 27.6 pg (27.0-33.0); MEAN CORPUSCULAR HGB CONC 33.2 g/dl (32.0-36.5); MONO # 0.3 K/mm3 (0.0-0.8); MONO % 4.5 % (0.0-5.0); NEUTROPHILS # 3.8 K/mm3 (1.8-7.7); NEUTROPHILS % 50.2 % (36.0-66.0); PLATELET COUNT, AUTOMATED 268 k/mm3 (150-450); RED CELL DISTRIBUTION WIDTH 14.5 % (11.5-14.5); WHITE BLOOD COUNT 7.6 K/mm3 (4.0-10.0)
[2017-04-05 02:16] LABS: CONTROL LINE HCG INT CTR LINE PRESENT
--- NOTE | 2017-04-05 02:20 | REPUSA ---
CLINICAL HISTORY: RUQ pain. TECHNIQUE: Realtime sonographic images were obtained in multiple projections. COMMENTS: The visualized liver is of increased echo texture without evidence of mass or defect. There is no int ra or extrahepatic biliary ductal dilatation. The common bile duct measures 6.8 mm. The gallbladder i s physiologically distended with evidence of a calculus at the neck. Positive sonographic Antonio. The gallbladder wall is not thickened measuring 2 mm and there is no pericholecystic fluid. The right kidney measures 10.7x5.9x4.2 cm. Significant gaseous bowel dilatation is noted. The visualized portions of the pancreas are unremarkable. IMPRESSION: Cholelithiasis. The stone is impacted in the neck of the gallbladder. Positive sonographic Antonio. Thank you for your kind referral of this patient.
[2017-04-05 02:22] LABS: ALBUMIN 3.1 GM/DL (3.2-5.2); ALBUMIN/GLOBULIN RATIO 0.72 (1.00-1.93); ALKALINE PHOSPHATASE 50 U/L (45-117); ALT/SGPT 39 U/L (12-78); ANION GAP 7 MEQ/L (8-16); AST/SGOT 28 U/L (15-37); BILIRUBIN,DIRECT < 0.1 MG/DL (0.0-0.2); BILIRUBIN,TOTAL 0.6 MG/DL (0.2-1.0); BLOOD UREA NITROGEN 13 MG/DL (7-18); CALCIUM LEVEL 8.7 MG/DL (8.5-10.1); CARBON DIOXIDE LEVEL 26 MEQ/L (21-32); CHLORIDE LEVEL 104 MEQ/L (98-107); CREATININE FOR GFR 0.93 MG/DL (0.55-1.02); GLOMERULAR FILTRATION RATE > 60.0 (>60); GLUCOSE, FASTING 143 MG/DL (70-105); POTASSIUM SERUM 3.8 MEQ/L (3.5-5.1); SODIUM LEVEL 137 MEQ/L (136-145); TOTAL PROTEIN 7.4 GM/DL (6.4-8.2)
[2017-04-05] MEDS ORDERED: BENT20TA PO (03:38)
[2017-04-05 03:50] VITALS: BP 117/53
== END 2017-04-05 04:04 | disposition home or self-care (01) ==
LOC: M ED 23:54
DX: K80.50 Calculus of bile duct without cholangitis or cholecystitis without obstruction (principal); F17.210 Nicotine dependence, cigarettes, uncomplicated; Z87.19 Personal history of other diseases of the digestive system; Z79.899 Other long term (current) drug therapy

== ENCOUNTER → 2017-04-12 | Outpatient (CLI) | payer OTHER ==
[~2017-04-12] MED LIST changes: +ALBU17IN; +BENT20TA PO; +CORITAB5 PO; +PANT40TA2; +PSEU30TA21 PO; +TRAM50TA2; +ZYRT10CA PO
--- NOTE | 2017-04-12 11:05 | REP ---
PA and lateral chest: Comparison is 01/24/2016. Lung nicole are clear. Cardiac size is borderline enlarged, unchanged. The josh, mediastinum, and bony thorax are unremarkable. Impression: Essentially negative PA and lateral chest. No interval change. Signed by Mir Schmidt MD 04/12/2017 10:57 A
== END ==
LOC: M LRY 10:41
PROVIDERS: ATTEND Nurse Practitioner Family
DX: R06.02 Shortness of breath (principal)

== ENCOUNTER 2017-04-17 23:49 | Emergency (ER) | payer OTHER ==
[~2017-04-17] VITALS: Ht 180.3 cm; Wt 228.9 kg
[~2017-04-17 23:49] MED LIST changes: -CORITAB5 PO; -PSEU30TA21 PO; -ZYRT10CA PO
[2017-04-17] MEDS ORDERED: LISI20TA PO (23:59)
[2017-04-18] MEDS ORDERED: PSEU30TA21 PO (04:24)
[2017-04-18] MEDS ORDERED: CORITAB5 PO (04:26)
[2017-04-18 04:28] VITALS: BP 129/76
== END 2017-04-18 04:30 | disposition home or self-care (01) ==
LOC: M ED 23:49
DX: J06.9 Acute upper respiratory infection, unspecified (principal); K21.0 Gastro-esophageal reflux disease with esophagitis; J45.909 Unspecified asthma, uncomplicated; I10 Essential (primary) hypertension; Z79.899 Other long term (current) drug therapy

== ENCOUNTER → 2017-04-20 | Outpatient (CLI) | payer OTHER ==
[~2017-04-20] MED LIST changes: +CORITAB5 PO; +PSEU30TA21 PO; +ZYRT10CA PO
[2017-04-20 12:13] LABS: BASO % 0.2 % (0.0-1.0); EOS # 0.1 K/mm3 (0.0-0.50); EOS % 0.8 % (0.0-3.0); LYMPH % 14.8 % (24.0-44.0); MEAN CORPUSCULAR HEMOGLOBIN 27.3 pg (27.0-33.0); MEAN CORPUSCULAR HGB CONC 32.6 g/dl (32.0-36.5); MEAN CORPUSCULAR VOLUME 83.8 fl (80.0-96.0); MONO # 0.3 K/mm3 (0.0-0.8); NEUTROPHILS # 10.5 K/mm3 (1.8-7.7); NEUTROPHILS % 81.6 % (36.0-66.0); RED CELL DISTRIBUTION WIDTH 14.6 % (11.5-14.5); WHITE BLOOD COUNT 12.8 K/mm3 (4.0-10.0)
[2017-04-20 13:04] LABS: ALBUMIN 3.4 GM/DL (3.2-5.2); ALBUMIN/GLOBULIN RATIO 0.71 (1.00-1.93); ALKALINE PHOSPHATASE 74 U/L (45-117); ALT/SGPT 38 U/L (12-78); ANION GAP 12 MEQ/L (8-16); AST/SGOT 16 U/L (15-37); BILIRUBIN,TOTAL 0.9 MG/DL (0.2-1.0); BLOOD UREA NITROGEN 14 MG/DL (7-18); CALCIUM LEVEL 9.2 MG/DL (8.5-10.1); CARBON DIOXIDE LEVEL 24 MEQ/L (21-32); CHLORIDE LEVEL 98 MEQ/L (98-107); CHOLESTEROL LEVEL 209 MG/DL (<200); CREATININE FOR GFR 1.12 MG/DL (0.55-1.02); GLOMERULAR FILTRATION RATE > 60.0 (>60); GLUCOSE, FASTING 250 MG/DL (70-105); POTASSIUM SERUM 4.6 MEQ/L (3.5-5.1); SODIUM LEVEL 134 MEQ/L (136-145); TOTAL PROTEIN 8.2 GM/DL (6.4-8.2); TRIGLYCERIDES LEVEL 227 MG/DL (<150)
== END ==
LOC: M LAB 11:12
PROVIDERS: ATTEND Nurse Practitioner Adult Health
DX: E66.01 Morbid (severe) obesity due to excess calories (principal); E55.9 Vitamin D deficiency, unspecified; F31.9 Bipolar disorder, unspecified; E78.4 Other hyperlipidemia; R73.09 Other abnormal glucose

== ENCOUNTER 2017-05-12 23:25 | Emergency (ER) | payer OTHER ==
[~2017-05-12] VITALS: Ht 180.3 cm; Wt 223.6 kg
[2017-05-12 23:25] VITALS: BP 201/92
[~2017-05-12 23:25] MED LIST changes: -ZYRT10CA PO
== END 2017-05-13 02:39 | disposition home or self-care (01) ==
LOC: M ED 23:25
DX: H93.8X1 Other specified disorders of right ear (principal); Z79.899 Other long term (current) drug therapy

== ENCOUNTER 2017-05-22 00:21 | Emergency (ER) | payer OTHER ==
[~2017-05-22] VITALS: Ht 180.3 cm; Wt 218.0 kg
[2017-05-22 00:27] VITALS: BP 189/91
[2017-05-22] MEDS ORDERED: ZYRT10CA PO (00:31)
== END 2017-05-22 00:51 | disposition home or self-care (01) ==
LOC: M ED 00:21
DX: H92.03 Otalgia, bilateral (principal); G89.29 Other chronic pain; I10 Essential (primary) hypertension; J45.909 Unspecified asthma, uncomplicated; F31.9 Bipolar disorder, unspecified; F41.9 Anxiety disorder, unspecified; F63.81 Intermittent explosive disorder; F90.9 Attention-deficit hyperactivity disorder, unspecified type; Z87.891 Personal history of nicotine dependence; Z79.899 Other long term (current) drug therapy

== ENCOUNTER 2017-06-26 12:12 | Emergency (ER) | payer OTHER ==
[~2017-06-26] VITALS: Ht 180.3 cm; Wt 220.4 kg
[~2017-06-26 12:12] MED LIST changes: +ZYRT10CA PO
[2017-06-26] MEDS ORDERED: ONDANSETRON 4 MG ORAL DISINTEGRATING TAB (S0181) PO ONE (12:30)
[2017-06-26 12:49] LABS: BASO % 0.3 % (0.0-1.0); EOS # 0.3 10^3/uL (0.0-0.50); EOS % 3.9 % (0.0-3.0); IMMATURE GRANULOCYTE % 0.4 % (0-0); LYMPH # 2.8 10^3/uL (1.5-6.5); MEAN CORPUSCULAR HEMOGLOBIN 27.4 pg (27.0-33.0); MEAN CORPUSCULAR VOLUME 85.7 fl (80.0-96.0); MONO # 0.5 10^3/uL (0.0-0.8); NEUTROPHILS # 3.9 10^3/uL (1.8-7.7); NEUTROPHILS % 52.4 % (36.0-66.0); PLATELET COUNT, AUTOMATED 258 10^3/uL (150-450); RED CELL DISTRIBUTION WIDTH 14.6 % (11.5-14.5); WHITE BLOOD COUNT 7.5 10^3/uL (4.0-10.0)
[2017-06-26 13:14] LABS: ALBUMIN 3.1 GM/DL (3.2-5.2); ALBUMIN/GLOBULIN RATIO 0.74 (1.00-1.93); ALKALINE PHOSPHATASE 52 U/L (45-117); ALT/SGPT 42 U/L (12-78); ANION GAP 7 MEQ/L (8-16); AST/SGOT 32 U/L (15-37); BILIRUBIN,DIRECT 0.1 MG/DL (0.0-0.2); BILIRUBIN,TOTAL 0.7 MG/DL (0.2-1.0); BLOOD UREA NITROGEN 8 MG/DL (7-18); CALCIUM LEVEL 8.8 MG/DL (8.5-10.1); CARBON DIOXIDE LEVEL 25 MEQ/L (21-32); CHLORIDE LEVEL 105 MEQ/L (98-107); CREATININE FOR GFR 0.76 MG/DL (0.55-1.02); GLOMERULAR FILTRATION RATE > 60.0 (>60); GLUCOSE, FASTING 121 MG/DL (70-105); POTASSIUM SERUM 3.8 MEQ/L (3.5-5.1); SODIUM LEVEL 137 MEQ/L (136-145); TOTAL PROTEIN 7.3 GM/DL (6.4-8.2)
[2017-06-26 13:46] LABS: ADD MANUAL DIFFER NO; DIFF SLIDE NUMBER 209
[2017-06-26 14:03] VITALS: BP 173/83
== END 2017-06-26 14:04 | disposition home or self-care (01) ==
LOC: M ED 12:12
DX: R11.2 Nausea with vomiting, unspecified (principal); I10 Essential (primary) hypertension; J45.909 Unspecified asthma, uncomplicated; F41.9 Anxiety disorder, unspecified; F33.9 Major depressive disorder, recurrent, unspecified; Z79.899 Other long term (current) drug therapy

== ENCOUNTER 2017-07-04 10:53 | Emergency (ER) | payer OTHER ==
[~2017-07-04] VITALS: Ht 180.3 cm; Wt 212.3 kg
[2017-07-04] MEDS ORDERED: GI COCKTAIL 50ML BTL(HYOSCYAMINE/MAALOX/LIDOCAINE VISCOUS)(1:3:1) PO ONE (13:00)
[2017-07-04] MEDS ORDERED: ASPIRIN 81 MG CHEW TABLET PO ONE (13:00)
[2017-07-04 13:08] VITALS: BP 173/93
[2017-07-04] MEDS ORDERED: METOPROLOL SUCC *XL* 25MG TAB (TopROL *XL*) PO ONE (13:15)
--- NOTE | 2017-07-04 13:48 | REP ---
Chest two views HISTORY: Chest pain Comparison: 04/12/2017 The lungs are clear. The heart is normal in size. The pulmonary vasculature is normal in appearance. The bony structure is intact. IMPRESSION: No acute disease. Signed by Bayron Ward MD 07/04/2017 01:40 P
[2017-07-04 14:19] LABS: BASO % 0.4 % (0.0-1.0); EOS # 0.3 10^3/uL (0.0-0.50); EOS % 3.6 % (0.0-3.0); IMMATURE GRANULOCYTE % 0.4 % (0-0); LYMPH # 2.9 10^3/uL (1.5-6.5); LYMPH % 36.1 % (24.0-44.0); MEAN CORPUSCULAR HEMOGLOBIN 27.7 pg (27.0-33.0); MEAN CORPUSCULAR HGB CONC 32.3 g/dl (32.0-36.5); MEAN CORPUSCULAR VOLUME 85.7 fl (80.0-96.0); MONO # 0.5 10^3/uL (0.0-0.8); NEUTROPHILS # 4.3 10^3/uL (1.8-7.7); NEUTROPHILS % 53.5 % (36.0-66.0); PLATELET COUNT, AUTOMATED 259 10^3/uL (150-450); RED CELL DISTRIBUTION WIDTH 14.6 % (11.5-14.5)
[2017-07-04 14:29] LABS: INR 0.95
[2017-07-04 15:15] LABS: ALBUMIN 3.1 GM/DL (3.2-5.2); ALKALINE PHOSPHATASE 52 U/L (45-117); ALT/SGPT 42 U/L (12-78); ANION GAP 7 MEQ/L (8-16); AST/SGOT 42 U/L (15-37); BILIRUBIN,DIRECT 0.2 MG/DL (0.0-0.2); BILIRUBIN,TOTAL 0.9 MG/DL (0.2-1.0); BLOOD UREA NITROGEN 10 MG/DL (7-18); CALCIUM LEVEL 8.8 MG/DL (8.5-10.1); CARBON DIOXIDE LEVEL 28 MEQ/L (21-32); CHLORIDE LEVEL 103 MEQ/L (98-107); CREATININE FOR GFR 0.82 MG/DL (0.55-1.02); GLOMERULAR FILTRATION RATE > 60.0 (>60); GLUCOSE, FASTING 114 MG/DL (70-105); POTASSIUM SERUM 3.8 MEQ/L (3.5-5.1); SODIUM LEVEL 138 MEQ/L (136-145); TOTAL PROTEIN 7.5 GM/DL (6.4-8.2)
[2017-07-04 15:38] VITALS: BP 158/104
--- NOTE | 2017-07-04 20:35 | ECGEPIP ---
Stationary ECG Study [facility] - ED Test Date: 2017-07-04 Pat Name: EDNA PRIETO Department: Room: - Gender: F Corn Miller: ninfa : 1990 Requested By: Iker Leslie Order Number: [id number] Reading MD: Yanna Velazco Measurements Intervals [place] Rate: 80 P: 17 CT: 150 QRS: 69 QRSD: 104 T: 22 QT: 411 QTc: 475 Interpretive Statements SINUS RHYTHM DECREASED RATE COMPARED 01/24/16 Electronically Signed On 07-04-2017 20:35:22 EDT by Yanna Velazco
== END 2017-07-04 15:50 | disposition home or self-care (01) ==
LOC: M ED 10:53
DX: K21.9 Gastro-esophageal reflux disease without esophagitis (principal); E11.9 Type 2 diabetes mellitus without complications; I10 Essential (primary) hypertension; J45.909 Unspecified asthma, uncomplicated; F17.210 Nicotine dependence, cigarettes, uncomplicated; Z79.899 Other long term (current) drug therapy

== ENCOUNTER → 2017-07-07 | Outpatient (CLI) | payer OTHER ==
[2017-07-07 14:15] LABS: BASO % 0.4 % (0.0-1.0); EOS # 0.2 10^3/uL (0.0-0.50); EOS % 2.8 % (0.0-3.0); IMMATURE GRANULOCYTE % 0.4 % (0-0); LYMPH % 39.7 % (24.0-44.0); MEAN CORPUSCULAR HEMOGLOBIN 27.6 pg (27.0-33.0); MEAN CORPUSCULAR HGB CONC 32.4 g/dl (32.0-36.5); MEAN CORPUSCULAR VOLUME 85.2 fl (80.0-96.0); MONO # 0.4 10^3/uL (0.0-0.8); MONO % 5.9 % (0.0-5.0); NEUTROPHILS # 3.8 10^3/uL (1.8-7.7); NEUTROPHILS % 50.8 % (36.0-66.0); PLATELET COUNT, AUTOMATED 274 10^3/uL (150-450); RED CELL DISTRIBUTION WIDTH 14.4 % (11.5-14.5); WHITE BLOOD COUNT 7.5 10^3/uL (4.0-10.0)
[2017-07-07 14:49] LABS: ALBUMIN 3.4 GM/DL (3.2-5.2); ALBUMIN/GLOBULIN RATIO 0.79 (1.00-1.93); ALKALINE PHOSPHATASE 56 U/L (45-117); ALT/SGPT 46 U/L (12-78); ANION GAP 8 MEQ/L (8-16); AST/SGOT 47 U/L (15-37); BILIRUBIN,TOTAL 0.9 MG/DL (0.2-1.0); BLOOD UREA NITROGEN 8 MG/DL (7-18); CARBON DIOXIDE LEVEL 28 MEQ/L (21-32); CHLORIDE LEVEL 101 MEQ/L (98-107); CHOLESTEROL LEVEL 184 MG/DL (<200); CREATININE FOR GFR 0.78 MG/DL (0.55-1.02); FREE T4 1.06 NG/DL (0.76-1.46); GLOMERULAR FILTRATION RATE > 60.0 (>60); GLUCOSE, FASTING 115 MG/DL (70-105); POTASSIUM SERUM 4.2 MEQ/L (3.5-5.1); SODIUM LEVEL 137 MEQ/L (136-145); TOTAL PROTEIN 7.7 GM/DL (6.4-8.2); TRIGLYCERIDES LEVEL 264 MG/DL (<150)
== END ==
LOC: M LAB 13:18
PROVIDERS: ATTEND Nurse Practitioner Adult Health
DX: Z51.81 Encounter for therapeutic drug level monitoring (principal); Z79.899 Other long term (current) drug therapy; E55.9 Vitamin D deficiency, unspecified

== ENCOUNTER 2017-07-18 22:33 | Emergency (ER) | payer OTHER ==
[~2017-07-18] VITALS: Ht 180.3 cm; Wt 200.9 kg
[2017-07-19 02:35] VITALS: BP 141/92
== END 2017-07-19 03:27 | disposition left against medical advice (07) ==
LOC: M ED 22:33
DX: Z53.21 Procedure and treatment not carried out due to patient leaving prior to being seen by health care provider (principal)

== ENCOUNTER 2017-08-25 00:43 | Emergency (ER) | payer OTHER ==
[~2017-08-25] VITALS: Ht 180.3 cm; Wt 190.9 kg
[2017-08-25 00:43] VITALS: BP 167/94
[2017-08-25] MEDS ORDERED: VICO7.5T11 PO (00:58)
[2017-08-25] MEDS ORDERED: TYLE500T78 PO (00:58)
== END 2017-08-25 02:56 | disposition left against medical advice (07) ==
LOC: M ED 00:43
DX: M54.5 Low back pain (principal); Z53.21 Procedure and treatment not carried out due to patient leaving prior to being seen by health care provider

== ENCOUNTER 2017-11-19 02:30 | Emergency (ER) | payer OTHER, MEDICAID ==
[2017-11-19 06:32] LABS: BASO % 0.1 % (0.0-1.0); EOS # 0.2 10^3/uL (0.0-0.50); EOS % 1.1 % (0.0-3.0); HEMATOCRIT 30.4 % (36.0-47.0); HEMOGLOBIN 9.4 g/dl (12.0-16.0); IMMATURE GRANULOCYTE % 0.5 % (0-3.0); LYMPH # 1.9 10^3/uL (1.5-6.5); LYMPH % 12.7 % (24.0-44.0); MEAN CORPUSCULAR HEMOGLOBIN 25.4 pg (27.0-33.0); MEAN CORPUSCULAR HGB CONC 30.9 g/dl (32.0-36.5); MEAN CORPUSCULAR VOLUME 82.2 fl (80.0-96.0); MONO # 0.7 10^3/uL (0.0-0.8); MONO % 4.3 % (0.0-5.0); NEUTROPHILS # 12.2 10^3/uL (1.8-7.7); NEUTROPHILS % 81.3 % (36.0-66.0); PLATELET COUNT, AUTOMATED 317 10^3/uL (150-450); RED CELL DISTRIBUTION WIDTH 13.8 % (11.5-14.5)
[2017-11-19 06:56] LABS: CONTROL LINE HCG INT CTR LINE PRESENT; HCG, SERUM QUALITATIVE NEGATIVE (NEGATIVE)
[2017-11-19 07:04] LABS: ALBUMIN 3.2 GM/DL (3.2-5.2); ALBUMIN/GLOBULIN RATIO 0.84 (1.00-1.93); ALKALINE PHOSPHATASE 52 U/L (45-117); ALT/SGPT 29 U/L (12-78); AMYLASE 20 U/L (25-115); ANION GAP 7 MEQ/L (8-16); AST/SGOT 14 U/L (7-37); BILIRUBIN,TOTAL 0.7 MG/DL (0.2-1.0); BLOOD UREA NITROGEN 11 MG/DL (7-18); CALCIUM LEVEL 8.2 MG/DL (8.5-10.1); CARBON DIOXIDE LEVEL 27 MEQ/L (21-32); CHLORIDE LEVEL 105 MEQ/L (98-107); CREATININE FOR GFR 0.88 MG/DL (0.55-1.30); GLOMERULAR FILTRATION RATE > 60.0 (>60); GLUCOSE, FASTING 131 MG/DL (70-100); LIPASE 66 U/L (73-393); POTASSIUM SERUM 3.8 MEQ/L (3.5-5.1); SODIUM LEVEL 139 MEQ/L (136-145)
[2017-11-19] MEDS ORDERED: ISOVUE-370 76% 100ML VIAL (Q9967) As Ordered (08:00)
[2017-11-19] MEDS: ONDANSETRON 4MG/2ML VIAL (J2405) IV (08:02)
[2017-11-19] MEDS: MORPHINE 4 MG/ML 1ML VIAL (J2270) IV (08:02)
[2017-11-19] MEDS: MORPHINE 4 MG/ML 1ML VIAL (J2270) IM (08:20)
[2017-11-19] MEDS: PERCOCET 5MG/325MG TAB PO (08:29)
[2017-11-19 08:39] LABS: APPEARANCE, URINE HAZY (CLEAR); BACTERIA, URINE AUTO NEGATIVE (NEGATIVE); BILIRUBIN, URINE AUTO NEGATIVE (NEGATIVE); BLOOD, URINE BLOOD 2+ (NEGATIVE); CALCIUM OXALATE CRYSTALS SMALL; COLOR, URINE YELLOW (YELLOW); GLUCOSE, URINE (UA) AUTO NEGATIVE (NEGATIVE); KETONE, URINE AUTO NEGATIVE (NEGATIVE); LEUKOCYTE ESTERASE, URINE AUTO TRACE (NEGATIVE); MUCUS, URINE SMALL (NEGATIVE); NITRITE, URINE AUTO NEGATIVE (NEGATIVE); PROTEIN, URINE AUTO NEGATIVE (NEGATIVE); RBC, URINE AUTO 3 /HPF (0-3); SPECIFIC GRAVITY URINE AUTO 1.024 (1.002-1.035); SQUAMOUS EPITHELIAL CELL UR AU 1 /HPF (0-6); WBC, URINE AUTO 14 /HPF (0-3)
== END 2017-11-19 11:42 | disposition home or self-care (01) ==
LOC: M ED 02:30
DX: R10.9 Unspecified abdominal pain (principal); E66.01 Morbid (severe) obesity due to excess calories; Z79.899 Other long term (current) drug therapy
CPT/HCPCS: J2405

== ENCOUNTER → 2018-01-18 | Outpatient (CLI) | payer OTHER | LOC: M LRY 09:22 | DX: R05 Cough (principal) | CPT/HCPCS: 71046 ==

== ENCOUNTER → 2018-02-27 | Outpatient (REF) | payer OTHER, SELFPAY ==
[2018-02-27 23:10] LABS: CHLAMYDIA DNA AMPLIFICATION NEGATIVE (NEGATIVE); GC DNA AMPLIFICATION NEGATIVE (NEGATIVE)
== END ==
LOC: M SFHCLERA 18:40
DX: N89.8 Other specified noninflammatory disorders of vagina (principal)
CPT/HCPCS: 87186

== ENCOUNTER 2018-03-01 19:35 | Emergency (ER) | payer OTHER, SELFPAY ==
[2018-03-01] MEDS ORDERED: KETOROLAC 60 MG/2 ML VIAL (J1885) IM ×2 (23:30)
[2018-03-01 23:50] LABS: BASO % 0.3 % (0.0-1.0); EOS # 0.3 10^3/uL (0.0-0.50); HEMATOCRIT 33.1 % (36.0-47.0); HEMOGLOBIN 9.7 g/dl (12.0-15.5); IMMATURE GRANULOCYTE % 0.8 % (0-3.0); LYMPH # 2.6 10^3/uL (1.5-6.5); LYMPH % 19.9 % (24.0-44.0); MEAN CORPUSCULAR HEMOGLOBIN 20.9 pg (27.0-33.0); MEAN CORPUSCULAR HGB CONC 29.3 g/dl (32.0-36.5); MEAN CORPUSCULAR VOLUME 71.2 fl (80.0-96.0); MONO # 0.5 10^3/uL (0.0-0.8); MONO % 4.1 % (0.0-5.0); NEUTROPHILS # 9.6 10^3/uL (1.8-7.7); NEUTROPHILS % 72.9 % (36.0-66.0); PLATELET COUNT, AUTOMATED 353 10^3/uL (150-450); RED BLOOD COUNT 4.65 10^6/uL (4.00-5.40); RED CELL DISTRIBUTION WIDTH 19.7 % (11.5-14.5); WHITE BLOOD COUNT 13.2 10^3/uL (4.0-10.0)
[2018-03-01] MEDS: ONDANSETRON 4 MG ORAL DISINTEGRATING TAB (Q0162 PER 1MG) PO ×2 (23:52)
[2018-03-01] MEDS: KETOROLAC 30 MG/ML VIAL (J1885) IV ×2 (23:53)
[2018-03-02 00:17] LABS: ALBUMIN 3.2 GM/DL (3.2-5.2); ALBUMIN/GLOBULIN RATIO 0.76 (1.00-1.93); ALKALINE PHOSPHATASE 59 U/L (45-117); ALT/SGPT 29 U/L (12-78); AMYLASE 26 U/L (25-115); ANION GAP 7 MEQ/L (8-16); AST/SGOT 15 U/L (7-37); BILIRUBIN,DIRECT 0.1 MG/DL (0.0-0.2); BILIRUBIN,TOTAL 0.6 MG/DL (0.2-1.0); BLOOD UREA NITROGEN 8 MG/DL (7-18); C REACTIVE PROTEIN QUANTITATIV 0.72 MG/DL (0.00-0.30); CALCIUM LEVEL 8.7 MG/DL (8.5-10.1); CARBON DIOXIDE LEVEL 26 MEQ/L (21-32); CHLORIDE LEVEL 104 MEQ/L (98-107); CREATININE FOR GFR 0.77 MG/DL (0.55-1.30); GLOMERULAR FILTRATION RATE > 60.0 (>60); GLUCOSE, FASTING 113 MG/DL (70-100); LIPASE 60 U/L (73-393); POTASSIUM SERUM 4.2 MEQ/L (3.5-5.1); SODIUM LEVEL 137 MEQ/L (136-145); TOTAL PROTEIN 7.4 GM/DL (6.4-8.2)
== END 2018-03-02 00:59 | disposition home or self-care (01) ==
LOC: M ED 03-02 00:59
DX: N39.0 Urinary tract infection, site not specified (principal); R10.9 Unspecified abdominal pain; R11.2 Nausea with vomiting, unspecified; E11.9 Type 2 diabetes mellitus without complications; I10 Essential (primary) hypertension; Z87.442 Personal history of urinary calculi; Z87.440 Personal history of urinary (tract) infections; J45.909 Unspecified asthma, uncomplicated; F31.9 Bipolar disorder, unspecified; F63.81 Intermittent explosive disorder; F90.9 Attention-deficit hyperactivity disorder, unspecified type; E66.01 Morbid (severe) obesity due to excess calories; K82.8 Other specified diseases of gallbladder; Z72.0 Tobacco use; Z79.899 Other long term (current) drug therapy
CPT/HCPCS: Q0162

== ENCOUNTER 2018-10-04 22:54 | Emergency (ER) | payer OTHER ==
[~2018-10-04] VITALS: Ht 180.3 cm; Wt 204.6 kg
[~2018-10-04 22:54] MED LIST changes: +BENT10CA PO; +KETO10TAB PO; +NORCOTAB PO; -PANT40TA2; +PANT40TA3; +TYLE500T78 PO; +VICO7.5T11 PO; +ZOFR4TAB14 PO; -ZOFR4TAB3 PO
[2018-10-05 00:13] LABS: BASO % 0.2 % (0.0-1.0); EOS # 0.4 10^3/uL (0.0-0.50); EOS % 4.2 % (0.0-3.0); HEMOGLOBIN 10.8 g/dl (12.0-15.5); LYMPH # 2.8 10^3/uL (1.5-6.5); LYMPH % 33.5 % (24.0-44.0); MEAN CORPUSCULAR HEMOGLOBIN 23.9 pg (27.0-33.0); MEAN CORPUSCULAR HGB CONC 30.9 g/dl (32.0-36.5); MEAN CORPUSCULAR VOLUME 77.4 fl (80.0-96.0); MONO # 0.5 10^3/uL (0.0-0.8); MONO % 5.9 % (0.0-5.0); NEUTROPHILS # 4.6 10^3/uL (1.8-7.7); NEUTROPHILS % 55.7 % (36.0-66.0); PLATELET COUNT, AUTOMATED 289 10^3/uL (150-450); RED BLOOD COUNT 4.52 10^6/uL (4.00-5.40); WHITE BLOOD COUNT 8.3 10^3/uL (4.0-10.0)
[2018-10-05 00:21] LABS: ALBUMIN 2.9 GM/DL (3.2-5.2); ALT/SGPT 34 U/L (12-78); BILIRUBIN,DIRECT 0.1 MG/DL (0.0-0.2); BILIRUBIN,TOTAL 0.5 MG/DL (0.2-1.0); BLOOD UREA NITROGEN 11 MG/DL (7-18); CALCIUM LEVEL 8.3 MG/DL (8.5-10.1); CARBON DIOXIDE LEVEL 26 MEQ/L (21-32); CHLORIDE LEVEL 105 MEQ/L (98-107); CREATININE FOR GFR 0.82 MG/DL (0.55-1.30); GLOMERULAR FILTRATION RATE > 60.0 (>60); GLUCOSE, FASTING 139 MG/DL (70-100); HCG, SERUM QUANTITATIVE < 1.0 MIU/ML; LIPASE 68 U/L (73-393); SODIUM LEVEL 139 MEQ/L (136-145); TOTAL PROTEIN 6.9 GM/DL (6.4-8.2)
[2018-10-05] MEDS ORDERED: NS 1,000 ML IV ONE (00:30)
[2018-10-05] MEDS ORDERED: ONDANSETRON 4MG/2ML VIAL (J2405) IV ONE (00:30)
[2018-10-05] MEDS ORDERED: KETOROLAC 30 MG/ML VIAL (J1885) IV ONE (00:30)
[2018-10-05 00:48] LABS: APPEARANCE, URINE HAZY (CLEAR); BACTERIA, URINE AUTO 1+ (NEGATIVE); BILIRUBIN, URINE AUTO NEGATIVE (NEGATIVE); BLOOD, URINE BLOOD NEGATIVE (NEGATIVE); COLOR, URINE YELLOW (YELLOW); GLUCOSE, URINE (UA) AUTO NEGATIVE (NEGATIVE); KETONE, URINE AUTO NEGATIVE (NEGATIVE); LEUKOCYTE ESTERASE, URINE AUTO NEGATIVE (NEGATIVE); MUCUS, URINE SMALL (NEGATIVE); NITRITE, URINE AUTO NEGATIVE (NEGATIVE); PROTEIN, URINE AUTO 1+ mg/dL (NEGATIVE); RBC, URINE AUTO 2 /HPF (0-3); SPECIFIC GRAVITY URINE AUTO 1.025 (1.002-1.035); SQUAMOUS EPITHELIAL CELL UR AU 11 /HPF (0-6); WBC, URINE AUTO 2 /HPF (0-3)
[2018-10-05] MEDS ORDERED: ISOVUE-370 76% 100ML VIAL (Q9967) As Ordered ONE (00:51)
[2018-10-05] MEDS ORDERED: GI COCKTAIL 50ML BTL(HYOSCYAMINE/MAALOX/LIDOCAINE VISCOUS)(1:3:1) PO ONE (01:00)
--- NOTE | 2018-10-05 01:32 | REPVR ---
EXAM: CT Abdomen and Pelvis With Contrast EXAM DATE/TIME: 10/05/2018 12:47 AM CLINICAL HISTORY: 28 years old, female; Pain; Abdominal pain; Localized; Right upper quadrant (ruq); Additional info: R flank/ruq pain radiating to back TECHNIQUE: Axial computed tomography images of the abdomen and pelvis with intravenous contrast. All CT scans at this facility use at least one of these dose optimization techniques: automated exposure control; mA and/or kV adjustment per patient size (includes targeted exams where dose is matched to clinical indication); or iterative reconstruction. Coronal and sagittal reformatted images were created and reviewed. CONTRAST: 100 ml of iso administered intravenously. COMPARISON: CT ABD PELVIS W/O CONTRAST 03/02/2018 12:10 AM FINDINGS: Lower thorax: No acute findings. ABDOMEN: Liver: There is mild fatty infiltration of the liver. Gallbladder and bile ducts: Normal. No calcified stones. No ductal dilation. Pancreas: Normal. No ductal dilation. Spleen: Normal. No splenomegaly. Adrenals: Normal. No mass. Kidneys and ureters: Normal. No hydronephrosis. Stomach and bowel: Normal. No obstruction. No mucosal thickening. Appendix: There are no changes of appendicitis. A normal appendix is not seen. There is considerable artifact and image degradation in the pelvis, however. PELVIS: Bladder: Unremarkable as visualized. Reproductive: Unremarkable as visualized. ABDOMEN and PELVIS: Intraperitoneal space: Normal. No free air. No significant fluid collection. Bones/joints: Degenerative changes in the lumbar spine, greatest at L5-S1 with right neural foraminal stenosis. Soft tissues: Unremarkable. Vasculature: Normal. No abdominal aortic aneurysm. Lymph nodes: Normal. No enlarged lymph nodes. IMPRESSION: 1. Mild fatty infiltration of the liver. 2. Degenerative change of the lumbar spine, particularly L5-S1 with bilateral neural foraminal stenosis. 3. Otherwise grossly negative CT abdomen/pelvis. There is considerable artifact in the pelvis with image degradation. No renal or ureteral calculi are evident and there is no evidence of obstructive uropathy. Electronically signed by: Mark Ramos On 10/05/2018 01:32:18 AM
[2018-10-05] MEDS ORDERED: methylPREDNISolone INJ 125 MG/2 ML VIAL (J2930) IV ONE (01:45)
[2018-10-05] MEDS ORDERED: METHOCARBAMOL 1,000 MG/10 ML VIAL (J2800) IV ONE (01:45)
[2018-10-05] MEDS ORDERED: ROBA500T PO (01:50)
[2018-10-05] MEDS ORDERED: RANI15TA PO (01:50)
[2018-10-05] MEDS ORDERED: NAPR-50 PO (01:50)
[2018-10-05 02:17] VITALS: BP 145/68
== END 2018-10-05 02:19 | disposition home or self-care (01) ==
LOC: M ED 22:54
DX: R10.9 Unspecified abdominal pain (principal); M54.5 Low back pain; K21.9 Gastro-esophageal reflux disease without esophagitis; M99.53 Intervertebral disc stenosis of neural canal of lumbar region; K76.0 Fatty (change of) liver, not elsewhere classified; E11.9 Type 2 diabetes mellitus without complications; I10 Essential (primary) hypertension; J45.909 Unspecified asthma, uncomplicated; Z87.891 Personal history of nicotine dependence
CPT/HCPCS: 36415; 74177; 80048; 80076; 81001; 83690; 84702; 85025; 96374; 96375; 99284; J1885; J2405; J2800; J2930; Q9967

== ENCOUNTER 2018-10-27 23:45 | Emergency (ER) | payer OTHER ==
[~2018-10-27] VITALS: Ht 180.3 cm; Wt 190.9 kg
[~2018-10-27 23:45] MED LIST changes: +NAPR-50 PO; +RANI15TA PO; +ROBA500T PO
[2018-10-28] MEDS ORDERED: KETO10TAB PO (00:52)
[2018-10-28] MEDS ORDERED: LIDO1SOL7 PO (00:52)
[2018-10-28] MEDS ORDERED: AUGM875T28 PO (00:52)
[2018-10-28] MEDS ORDERED: KETOROLAC TROMETHAMINE 10 MG TAB PO ONE (01:00)
[2018-10-28] MEDS ORDERED: LIDOCAINE VISCOUS 2% SOLN 15ML UDC TOP ONE (01:00)
[2018-10-28] MEDS ORDERED: AUGMENTIN 875 MG TAB PO ONE (01:00)
[2018-10-28 01:05] VITALS: BP 148/78
== END 2018-10-28 01:07 | disposition home or self-care (01) ==
LOC: M ED 23:45
DX: K04.7 Periapical abscess without sinus (principal); K02.9 Dental caries, unspecified; K08.89 Other specified disorders of teeth and supporting structures; E11.9 Type 2 diabetes mellitus without complications; J45.909 Unspecified asthma, uncomplicated; I10 Essential (primary) hypertension; K21.9 Gastro-esophageal reflux disease without esophagitis; F31.9 Bipolar disorder, unspecified; F90.9 Attention-deficit hyperactivity disorder, unspecified type; Z87.19 Personal history of other diseases of the digestive system; Z79.899 Other long term (current) drug therapy

== ENCOUNTER → 2018-11-07 | Outpatient (CLI) | payer OTHER ==
[~2018-11-07] MED LIST changes: +AUGM875T28 PO; +LIDO1SOL7 PO
--- NOTE | 2018-11-07 16:26 | REP ---
CERVICAL SPINE, THREE VIEWS: HISTORY: Low back pain. The cervical spine is visualized from C1 to the C4-5 level in the lateral radiographs. There is no acute fracture or subluxation. The intervertebral discs are normal in height. There is loss of the normal lordotic curve. IMPRESSION: There is no acute fracture or subluxation. Electronically Signed by Bayron Ward MD 11/07/2018 04:30 P
--- NOTE | 2018-11-07 16:27 | REP ---
THORACIC SPINE, TWO VIEWS: HISTORY: Back pain. The upper thoracic spine is not seen in the lateral radiograph. There is no acute fracture or subluxation. The intervertebral discs are normal in height. IMPRESSION: There is no acute fracture or subluxation. Electronically Signed by Bayron Ward MD 11/07/2018 04:30 P
--- NOTE | 2018-11-07 16:29 | REP ---
LUMBAR SPINE, TWO VIEWS: HISTORY: Back pain. There is no acute fracture or subluxation. The L3-4 and L4-5 intervertebral discs are decreased in height consistent with disc degeneration. IMPRESSION: Degenerative change as described above. Electronically Signed by Bayron Ward MD 11/07/2018 04:30 P
== END ==
LOC: M RAD 13:03
PROVIDERS: ATTEND Chiropractor
DX: M51.36 Other intervertebral disc degeneration, lumbar region (principal); M99.03 Segmental and somatic dysfunction of lumbar region; M99.02 Segmental and somatic dysfunction of thoracic region

== ENCOUNTER → 2018-11-14 | Outpatient (REF) | payer OTHER ==
[2018-11-14 11:08] LABS: INFLUENZA A AMPLIFICATION NEGATIVE (NEGATIVE); INFLUENZA B AMPLIFICATION NEGATIVE (NEGATIVE)
== END ==
LOC: M LAB REF 10:31
PROVIDERS: ATTEND Physician Assistant
DX: J11.1 Influenza due to unidentified influenza virus with other respiratory manifestations (principal)

== ENCOUNTER 2018-12-13 14:06 | Emergency (ER) | payer OTHER ==
[~2018-12-13] VITALS: Ht 180.3 cm; Wt 224.5 kg
[~2018-12-13 14:06] MED LIST changes: +CIPR-249 PO; +CYCL10TA PO; +IBUP-1022 PO; +LEXA1TAB PO; +PYRI1TAB5 PO
[2018-12-13 14:07] VITALS: BP 177/90
== END 2018-12-13 17:26 | disposition left against medical advice (07) ==
LOC: M ED 14:06
DX: Z04.1 Encounter for examination and observation following transport accident (principal); Z53.21 Procedure and treatment not carried out due to patient leaving prior to being seen by health care provider

== ENCOUNTER → 2018-12-19 | Outpatient (REF) | payer OTHER ==
[2018-12-19 13:01] LABS: ALBUMIN 3.5 GM/DL (3.2-5.2); ALT/SGPT 46 U/L (12-78); BILIRUBIN,TOTAL 0.7 MG/DL (0.2-1.0); BLOOD UREA NITROGEN 14 MG/DL (7-18); CALCIUM LEVEL 9.1 MG/DL (8.5-10.1); CARBON DIOXIDE LEVEL 25 MEQ/L (21-32); CHLORIDE LEVEL 105 MEQ/L (98-107); CHOLESTEROL LEVEL 170 MG/DL (<200); CHOLESTEROL RISK RATIO 5.666 (<5); CREATININE FOR GFR 0.99 MG/DL (0.55-1.30); GLOMERULAR FILTRATION RATE > 60.0 (>60); GLUCOSE, FASTING 142 MG/DL (70-100); HDL CHOLESTEROL 30 MG/DL (>40); LDL CHOLESTEROL 90 MG/DL (<100); NON-HDL-C 140 MG/DL; POTASSIUM SERUM 3.9 MEQ/L (3.5-5.1); SODIUM LEVEL 138 MEQ/L (136-145); TOTAL 25(OH) VITAMIN D 10.7 NG/ML (30.0-100.0); TOTAL PROTEIN 7.2 GM/DL (6.4-8.2); TRIGLYCERIDES LEVEL 252 MG/DL (<150)
[2018-12-21 00:06] LABS: Lyme Disease IgG/IgM Antibodie <0.91 ISR (0.00-0.90); Lyme Disease IgM Ab Quantitati <0.80 index (0.00-0.79)
== END ==
LOC: M LAB REF 11:53
PROVIDERS: ATTEND Internal Medicine Pulmonary Disease
DX: Z13.228 Encounter for screening for other metabolic disorders (principal); F33.0 Major depressive disorder, recurrent, mild

== ENCOUNTER 2019-02-02 22:05 | Emergency (ER) | payer OTHER ==
[~2019-02-02] VITALS: Ht 180.3 cm; Wt 227.2 kg
[~2019-02-02 22:05] MED LIST changes: +HYDR-3715 PO; -LIDO1SOL7 PO; +LIDO1SOL8 PO; -NAPR-50 PO; +NAPR-837 PO; -NORCOTAB PO
[2019-02-02 22:25] VITALS: BP 138/72
[2019-02-02] MEDS ORDERED: IPRATROPIUM 0.5MG/ALBUTEROL 2.5MG INH SOL UD 3ML (DUONEB)(J7620) NEB ONE (22:45)
[2019-02-02] MEDS ORDERED: PRED20TA PO (23:07)
[2019-02-02] MEDS ORDERED: predniSONE 20 MG TAB PO ONE (23:15)
--- NOTE | 2019-02-03 10:06 | REP ---
Chest x-ray: Two views. History: Cough. Comparison study: January 18, 2018 . Findings: The lungs are well inflated and free of infiltrate. The pleural angles are sharp. The heart size is normal. Pulmonary vasculature is not increased. No significant bony abnormality is seen. Impression: Negative chest x-ray. Electronically Signed by Po Domingo MD 02/03/2019 07:57 A
== END 2019-02-02 23:13 | disposition home or self-care (01) ==
LOC: M ED 22:05
DX: J06.9 Acute upper respiratory infection, unspecified (principal); E11.9 Type 2 diabetes mellitus without complications; I11.9 Hypertensive heart disease without heart failure; F17.200 Nicotine dependence, unspecified, uncomplicated; Z79.899 Other long term (current) drug therapy

== ENCOUNTER → 2019-04-19 | Outpatient (CLI) | payer MEDICAID, OTHER, SELFPAY ==
[~2019-04-19] MED LIST changes: +PRED20TA PO
[2019-04-19 17:20] LABS: BASO % 0.4 % (0.0-1.0); EOS # 0.3 10^3/uL (0.0-0.50); EOS % 3.8 % (0.0-3.0); HEMATOCRIT 43.3 % (36.0-47.0); LYMPH # 3.4 10^3/uL (1.5-4.5); LYMPH % 44.9 % (24.0-44.0); MEAN CORPUSCULAR HEMOGLOBIN 27.2 pg (27.0-33.0); MEAN CORPUSCULAR HGB CONC 32.3 g/dl (32.0-36.5); MEAN CORPUSCULAR VOLUME 84.2 fl (80.0-96.0); MONO # 0.5 10^3/uL (0.0-0.8); MONO % 6.7 % (0.0-5.0); NEUTROPHILS # 3.3 10^3/uL (1.8-7.7); NEUTROPHILS % 43.9 % (36.0-66.0); PLATELET COUNT, AUTOMATED 288 10^3/uL (150-450); RED BLOOD COUNT 5.14 10^6/uL (4.00-5.40); WHITE BLOOD COUNT 7.6 10^3/uL (4.0-10.0)
[2019-04-19 17:37] LABS: AMORPHOUS SEDIMENT SMALL (NEGATIVE); APPEARANCE, URINE CLOUDY (CLEAR); BACTERIA, URINE AUTO 2+ (NEGATIVE); BILIRUBIN, URINE AUTO NEGATIVE (NEGATIVE); BLOOD, URINE BLOOD NEGATIVE (NEGATIVE); COLOR, URINE YELLOW (YELLOW); GLUCOSE, URINE (UA) AUTO NEGATIVE (NEGATIVE); KETONE, URINE AUTO NEGATIVE (NEGATIVE); LEUKOCYTE ESTERASE, URINE AUTO NEGATIVE (NEGATIVE); MUCUS, URINE SMALL (NEGATIVE); NITRITE, URINE AUTO POSITIVE (NEGATIVE); PROTEIN, URINE AUTO NEGATIVE (NEGATIVE); RBC, URINE AUTO 2 /HPF (0-3); SPECIFIC GRAVITY URINE AUTO 1.018 (1.002-1.035); SQUAMOUS EPITHELIAL CELL UR AU 1 /HPF (0-6); UROBILINOGEN, URINE AUTO 0.2 mg/dL (0.0-2.0); WBC, URINE AUTO 5 /HPF (0-3)
[2019-04-19 17:45] LABS: ALBUMIN 3.4 GM/DL (3.2-5.2); ALT/SGPT 49 U/L (12-78); BILIRUBIN,TOTAL 0.8 MG/DL (0.2-1.0); BLOOD UREA NITROGEN 11 MG/DL (7-18); CALCIUM LEVEL 9.2 MG/DL (8.5-10.1); CARBON DIOXIDE LEVEL 25 MEQ/L (21-32); CHLORIDE LEVEL 103 MEQ/L (98-107); CHOLESTEROL LEVEL 183 MG/DL (<200); CHOLESTEROL RISK RATIO 5.228 (<5); CREATININE FOR GFR 0.91 MG/DL (0.55-1.30); FREE T4 1.09 NG/DL (0.76-1.46); GLOMERULAR FILTRATION RATE > 60.0 (>60); GLUCOSE, FASTING 126 MG/DL (70-100); HDL CHOLESTEROL 35 MG/DL (>40); LDL CHOLESTEROL 82 MG/DL (<100); NON-HDL-C 148 MG/DL; POTASSIUM SERUM 4.4 MEQ/L (3.5-5.1); SODIUM LEVEL 138 MEQ/L (136-145); TRIGLYCERIDES LEVEL 332 MG/DL (<150)
[2019-04-19 17:47] LABS: TOTAL 25(OH) VITAMIN D 13.2 NG/ML (30.0-100.0)
[2019-04-19 18:24] LABS: HCG, SERUM QUALITATIVE NEGATIVE (NEGATIVE)
[2019-04-19 18:39] LABS: HEMOGLOBIN A1c 7.5 %
[2019-04-23 00:06] LABS: Lyme Disease IgG/IgM Antibodie <0.91 ISR (0.00-0.90); Lyme Disease IgM Ab Quantitati <0.80 index (0.00-0.79)
== END ==
LOC: M LAB 16:24
PROVIDERS: ATTEND Family Medicine
DX: N92.5 Other specified irregular menstruation (principal); Z13.228 Encounter for screening for other metabolic disorders

== ENCOUNTER 2019-05-24 05:49 | Emergency (ER) | payer MEDICAID ==
[~2019-05-24] VITALS: Ht 180.3 cm; Wt 212.3 kg
[~2019-05-24 05:49] MED LIST changes: -LISI20TA PO; +LISI20TA19 PO; -VICO7.5T11 PO; +VICO7.5T12 PO
[2019-05-24] MEDS ORDERED: KETOROLAC 30 MG/ML VIAL (J1885) IV ONE (06:15)
[2019-05-24] MEDS ORDERED: diphenhydrAMINE INJ 50MG/ML VIAL (J1200) IV ONE (06:15)
[2019-05-24] MEDS ORDERED: METOCLOPRAMIDE INJ 10MG/2ML VIAL (J2765) IV ONE (06:15)
[2019-05-24] MEDS ORDERED: NS 1,000 ML IV ONE (06:15)
[2019-05-24] MEDS ORDERED: AUGM875T28 PO (06:30)
[2019-05-24 07:30] VITALS: BP 140/84
[2019-05-24] MEDS ORDERED: BENZOCAINE 20% GEL 9GM TUBE (ANBESOL MAX STRENGTH) TOP ONE (07:45)
== END 2019-05-24 08:25 | disposition home or self-care (01) ==
LOC: M ED 05:49
DX: G43.909 Migraine, unspecified, not intractable, without status migrainosus (principal); K04.7 Periapical abscess without sinus; K08.89 Other specified disorders of teeth and supporting structures; S02.5XXA Fracture of tooth (traumatic), initial encounter for closed fracture; X58.XXXA Exposure to other specified factors, initial encounter; Y92.9 Unspecified place or not applicable; Y93.9 Activity, unspecified; Y99.9 Unspecified external cause status; E11.9 Type 2 diabetes mellitus without complications; F31.9 Bipolar disorder, unspecified; F90.9 Attention-deficit hyperactivity disorder, unspecified type; N92.6 Irregular menstruation, unspecified; Z72.0 Tobacco use
CPT/HCPCS: 96361; 96374; 96375; 99284; J1200; J1885; J2765

== ENCOUNTER 2019-09-15 21:21 | Emergency (ER) | payer OTHER ==
[2019-09-15 22:33] LABS: BASO % 0.5 % (0.0-1.0); EOS # 0.1 10^3/uL (0.0-0.5); EOS % 1.9 % (0.0-3.0); HEMATOCRIT 41.2 % (36.0-47.0); HEMOGLOBIN 13.3 g/dl (12.0-15.5); LYMPH # 2.7 10^3/uL (1.5-5.0); MEAN CORPUSCULAR HEMOGLOBIN 28.5 pg (27.0-33.0); MEAN CORPUSCULAR HGB CONC 32.3 g/dl (32.0-36.5); MEAN CORPUSCULAR VOLUME 88.2 fl (80.0-96.0); MONO # 0.3 10^3/uL (0.0-0.8); MONO % 4.3 % (0.0-5.0); NEUTROPHILS # 4.1 10^3/uL (1.5-8.5); NEUTROPHILS % 55.8 % (36.0-66.0); PLATELET COUNT, AUTOMATED 259 10^3/uL (150-450); RED BLOOD COUNT 4.67 10^6/uL (4.00-5.40); WHITE BLOOD COUNT 7.3 10^3/uL (4.0-10.0)
[2019-09-15 22:51] LABS: BLOOD UREA NITROGEN 9 MG/DL (7-18); CALCIUM LEVEL 9.1 MG/DL (8.5-10.1); CARBON DIOXIDE LEVEL 24 MEQ/L (21-32); CHLORIDE LEVEL 101 MEQ/L (98-107); CREATININE FOR GFR 0.99 MG/DL (0.55-1.30); GLOMERULAR FILTRATION RATE > 60.0 (>60); GLUCOSE, FASTING 200 MG/DL (70-100); POTASSIUM SERUM 4.2 MEQ/L (3.5-5.1); SODIUM LEVEL 136 MEQ/L (136-145)
[2019-09-15] MEDS ORDERED: PERCOCET 5MG/325MG TAB PO ONE (23:00)
--- NOTE | 2019-09-15 23:55 | REPVR ---
PROCEDURE INFORMATION: Exam: US Pelvis Complete, Transabdominal Exam date and time: 09/15/2019 11:42 PM Age: 29 years old Clinical indication: Menstruation abnormalities; Excessive menstruation; With irregular cycle; Additional info: Severe vaginal bleeding TECHNIQUE: Imaging protocol: Real-time transabdominal pelvic ultrasound with image documentation. Complete exam. COMPARISON: US PELVIC NON-OB COMPLETE 11/19/2017 10:10 AM FINDINGS: Transabdominal imaging only was performed at the patient's request Uterus measures 10.9 x 5.4 x 6.7 cm in size. No focal uterine mass. Endometrial stripe appears homogeneous, measuring 14 mm in thickness. Right ovary measures 2.9 x 2.7 x 2.9 cm in size. No dominant mass or cyst. Left ovary measures 3.3 x 2.5 x 2.9 cm in size. No dominant mass or cyst. Doppler flow is documented in both ovaries. No abnormal volume of free fluid within the pelvis. IMPRESSION: Unremarkable transabdominal pelvic ultrasound. Electronically signed by: Jd Weber On 09/15/2019 23:55:05 PM
[2019-09-16 00:01] VITALS: BP 141/99
[2019-09-16] MEDS ORDERED: PROV10TA PO (00:53)
[2019-09-16] MEDS ORDERED: medroxyPROGESTERone 5MG TABLET PO ONE (01:00)
[2019-09-16] MEDS ORDERED: NORCO 5/325MG TABLET (BULK FOR ED) PO ONE (01:00)
== END 2019-09-16 01:02 | disposition home or self-care (01) ==
LOC: M ED 21:21
DX: N93.8 Other specified abnormal uterine and vaginal bleeding (principal); F31.9 Bipolar disorder, unspecified; K80.50 Calculus of bile duct without cholangitis or cholecystitis without obstruction; N92.1 Excessive and frequent menstruation with irregular cycle; F17.210 Nicotine dependence, cigarettes, uncomplicated

== ENCOUNTER 2019-10-08 21:06 | Emergency (ER) | payer OTHER ==
[~2019-10-08] VITALS: Ht 180.3 cm; Wt 231.8 kg
[~2019-10-08 21:06] MED LIST changes: +PROV10TA PO
[2019-10-08 21:23] VITALS: BP 139/93
[2019-10-08] MEDS ORDERED: IBUPROFEN 800 MG TAB PO ONE (22:00)
[2019-10-08] MEDS ORDERED: ACETAMINOPHEN 500 MG TAB PO ONE (22:45)
== END 2019-10-08 23:01 | disposition home or self-care (01) ==
LOC: M ED 21:06
DX: M25.511 Pain in right shoulder (principal); M25.512 Pain in left shoulder; I10 Essential (primary) hypertension

== ENCOUNTER 2019-11-18 02:43 | Emergency (ER) | payer OTHER ==
[~2019-11-18] VITALS: Ht 180.3 cm; Wt 250.0 kg
[~2019-11-18 02:43] MED LIST changes: -LIDO1SOL8 PO; +LIDO2SOL17 PO
[2019-11-18] MEDS ORDERED: ESCI10TA2 (02:49)
[2019-11-18] MEDS ORDERED: IBUP80TA PO (04:11)
[2019-11-18] MEDS ORDERED: CLEO300C2 PO (04:11)
[2019-11-18] MEDS ORDERED: KETOROLAC 30 MG/ML VIAL (J1885) IV ONE (04:15)
[2019-11-18] MEDS ORDERED: CLINDAMYCIN 150 MG CAP PO ONE (04:15)
[2019-11-18 04:37] VITALS: BP 133/73
== END 2019-11-18 04:41 | disposition home or self-care (01) ==
LOC: M ED 02:43
DX: K08.89 Other specified disorders of teeth and supporting structures (principal); R68.84 Jaw pain; K08.531 Fractured dental restorative material with loss of material; F17.210 Nicotine dependence, cigarettes, uncomplicated; Z79.899 Other long term (current) drug therapy
CPT/HCPCS: 96374; 99283; J1885

== ENCOUNTER 2019-12-25 09:47 | Emergency (ER) | payer OTHER, SELFPAY ==
[~2019-12-25] VITALS: Ht 180.3 cm; Wt 231.8 kg
[~2019-12-25 09:47] MED LIST changes: +CLEO300C2 PO; +ESCI10TA2; +IBUP80TA PO
[2019-12-25] MEDS ORDERED: NORC1TAB7 PO (10:14)
[2019-12-25] MEDS ORDERED: AUGM875T28 PO (10:14)
[2019-12-25] MEDS ORDERED: AUGMENTIN 875 MG TAB PO ONE (10:15)
[2019-12-25] MEDS ORDERED: NORCO, ANEXSIA 5/325MG TABLET (HYDROcodone/ACETAMINOPHEN) PO ONE (10:15)
[2019-12-25 10:23] VITALS: BP 168/88
== END 2019-12-25 10:23 | disposition home or self-care (01) ==
LOC: M ED 09:47
DX: K02.9 Dental caries, unspecified (principal); K08.89 Other specified disorders of teeth and supporting structures; Z79.2 Long term (current) use of antibiotics; Z79.899 Other long term (current) drug therapy

== ENCOUNTER 2020-03-01 23:42 | Emergency (ER) | payer OTHER ==
[~2020-03-01 23:42] MED LIST changes: +CYCL-707 PO; -CYCL10TA PO; +NORC1TAB7 PO
[2020-03-01 23:43] VITALS: BP 144/90
[2020-03-02 00:49] LABS: BASO % 0.3 % (0.0-1.0); EOS # 0.1 10^3/uL (0.0-0.5); EOS % 0.8 % (0.0-3.0); HEMATOCRIT 41.4 % (36.0-47.0); HEMOGLOBIN 13.1 g/dl (12.0-15.5); LYMPH # 1.6 10^3/uL (1.5-5.0); LYMPH % 22.2 % (24.0-44.0); MEAN CORPUSCULAR HEMOGLOBIN 27.3 pg (27.0-33.0); MEAN CORPUSCULAR HGB CONC 31.6 g/dl (32.0-36.5); MEAN CORPUSCULAR VOLUME 86.4 fl (80.0-96.0); MONO # 0.5 10^3/uL (0.0-0.8); MONO % 7.2 % (0.0-5.0); NEUTROPHILS % 68.8 % (36.0-66.0); PLATELET COUNT, AUTOMATED 227 10^3/uL (150-450); RED BLOOD COUNT 4.79 10^6/uL (4.00-5.40); WHITE BLOOD COUNT 7.2 10^3/uL (4.0-10.0)
[2020-03-02 01:00] LABS: HCG, SERUM QUALITATIVE NEGATIVE (NEGATIVE)
[2020-03-02 01:07] LABS: ALBUMIN 3.1 GM/DL (3.2-5.2); ALT/SGPT 69 U/L (12-78); BILIRUBIN,DIRECT 0.5 MG/DL (0.0-0.2); BILIRUBIN,TOTAL 2.2 MG/DL (0.2-1.0); BLOOD UREA NITROGEN 8 MG/DL (7-18); CALCIUM LEVEL 8.3 MG/DL (8.5-10.1); CARBON DIOXIDE LEVEL 27 MEQ/L (21-32); CHLORIDE LEVEL 101 MEQ/L (98-107); CREATININE FOR GFR 0.89 MG/DL (0.55-1.30); GLOMERULAR FILTRATION RATE > 60.0 (>60); GLUCOSE, FASTING 152 MG/DL (70-100); LIPASE 27 U/L (73-393); POTASSIUM SERUM 3.9 MEQ/L (3.5-5.1); SODIUM LEVEL 136 MEQ/L (136-145); TOTAL PROTEIN 7.3 GM/DL (6.4-8.2)
== END 2020-03-02 02:16 | disposition left against medical advice (07) ==
LOC: M ED 23:42
DX: Z53.21 Procedure and treatment not carried out due to patient leaving prior to being seen by health care provider (principal)

== ENCOUNTER → 2020-03-06 | Outpatient (REF) | payer OTHER, MEDICAID ==
[2020-03-06 18:04] LABS: BASO % 0.5 % (0.0-1.0); EOS # 0.3 10^3/uL (0.0-0.5); EOS % 5.1 % (0.0-3.0); HEMATOCRIT 40.8 % (36.0-47.0); HEMOGLOBIN 12.7 g/dl (12.0-15.5); LYMPH # 2.8 10^3/uL (1.5-5.0); LYMPH % 46.2 % (24.0-44.0); MEAN CORPUSCULAR HGB CONC 31.1 g/dl (32.0-36.5); MEAN CORPUSCULAR VOLUME 86.8 fl (80.0-96.0); MONO # 0.5 10^3/uL (0.0-0.8); MONO % 7.6 % (0.0-5.0); NEUTROPHILS # 2.4 10^3/uL (1.5-8.5); NEUTROPHILS % 40.1 % (36.0-66.0); PLATELET COUNT, AUTOMATED 279 10^3/uL (150-450)
[2020-03-06 18:26] LABS: HEMOGLOBIN A1c 8.9 %
[2020-03-06 18:35] LABS: ALT/SGPT 83 U/L (12-78); BILIRUBIN,TOTAL 0.8 MG/DL (0.2-1.0); BLOOD UREA NITROGEN 9 MG/DL (7-18); CALCIUM LEVEL 8.5 MG/DL (8.5-10.1); CARBON DIOXIDE LEVEL 28 MEQ/L (21-32); CHLORIDE LEVEL 105 MEQ/L (98-107); CHOLESTEROL LEVEL 170 MG/DL (<200); CHOLESTEROL RISK RATIO 7.727 (<5); CREATININE FOR GFR 0.87 MG/DL (0.55-1.30); FREE T4 1.33 NG/DL (0.76-1.46); GLOMERULAR FILTRATION RATE > 60.0 (>60); GLUCOSE, FASTING 163 MG/DL (70-100); HDL CHOLESTEROL 22 MG/DL (>40); LDL CHOLESTEROL 104 MG/DL (<100); NON-HDL-C 148 MG/DL; SODIUM LEVEL 140 MEQ/L (136-145); TOTAL PROTEIN 7.2 GM/DL (6.4-8.2); TRIGLYCERIDES LEVEL 220 MG/DL (<150)
[2020-03-06 18:36] LABS: TOTAL 25(OH) VITAMIN D 11.2 NG/ML (30.0-100.0)
== END ==
LOC: M LAB REF 17:23
PROVIDERS: ATTEND Physician Assistant
DX: Z68.44 Body mass index [BMI] 60.0-69.9, adult (principal); E55.9 Vitamin D deficiency, unspecified; E11.9 Type 2 diabetes mellitus without complications; J45.909 Unspecified asthma, uncomplicated; N92.5 Other specified irregular menstruation; F43.12 Post-traumatic stress disorder, chronic; F41.9 Anxiety disorder, unspecified; M54.5 Low back pain; I10 Essential (primary) hypertension; E66.01 Morbid (severe) obesity due to excess calories

== ENCOUNTER 2020-07-03 03:44 | Emergency (ER) | payer MEDICAID, OTHER ==
[~2020-07-03] VITALS: Ht 180.3 cm; Wt 222.5 kg
[~2020-07-03 03:44] MED LIST changes: -LISI20TA19 PO; +LISI20TA35 PO; +PANT40TA29; -PANT40TA3
[2020-07-03] MEDS ORDERED: AUGM875T28 PO (06:29)
[2020-07-03] MEDS ORDERED: AUGMENTIN 875 MG TAB PO ONE (06:30)
[2020-07-03 06:34] VITALS: BP 148/86
== END 2020-07-03 06:35 | disposition home or self-care (01) ==
LOC: M ED 03:44
DX: K08.89 Other specified disorders of teeth and supporting structures (principal); I10 Essential (primary) hypertension; J45.909 Unspecified asthma, uncomplicated; F17.200 Nicotine dependence, unspecified, uncomplicated

== ENCOUNTER 2020-10-28 00:32 | Emergency (ER) | payer OTHER ==
[~2020-10-28] VITALS: Ht 180.3 cm; Wt 219.0 kg
[~2020-10-28 00:32] MED LIST changes: +ESCI10TA16; -ESCI10TA2
[2020-10-28] MEDS ORDERED: CORTCRE TOP (01:38)
[2020-10-28 01:43] VITALS: BP 170/90
[2020-10-28] MEDS ORDERED: HYDROCORTISONE 1% CREAM 30 GM TOP ONE (01:45)
[2020-10-28] MEDS ORDERED: diphenhydrAMINE 50MG CAP PO ONE (01:45)
== END 2020-10-28 01:49 | disposition home or self-care (01) ==
LOC: M ED 00:32
DX: L29.9 Pruritus, unspecified (principal); F17.210 Nicotine dependence, cigarettes, uncomplicated

== ENCOUNTER 2021-03-01 01:06 | Emergency (ER) | payer OTHER ==
[~2021-03-01] VITALS: Ht 180.3 cm; Wt 213.6 kg
[2021-03-01 01:06] VITALS: BP 150/98
[~2021-03-01 01:06] MED LIST changes: +CORTCRE TOP
== END 2021-03-01 02:35 | disposition left against medical advice (07) ==
LOC: M ED 01:06
DX: Z53.21 Procedure and treatment not carried out due to patient leaving prior to being seen by health care provider (principal)

== ENCOUNTER 2021-03-24 01:09 | Emergency (ER) | payer OTHER ==
[~2021-03-24] VITALS: Ht 180.3 cm; Wt 214.8 kg
[2021-03-24 01:10] VITALS: BP 134/61
[2021-03-24] MEDS ORDERED: ESCITALOPRAM (03:48)
[2021-03-24] MEDS ORDERED: KETOROLAC 30 MG/ML 1ML VIAL IV ONE (04:35)
[2021-03-24] MEDS ORDERED: NS 1,000 ML IV ONE (04:35)
[2021-03-24] MEDS ORDERED: diphenhydrAMINE 50MG/ML VIAL (J1200) IV ONE (04:35)
[2021-03-24] MEDS ORDERED: METOCLOPRAMIDE INJ 10MG/2ML VIAL (J2765 PER 1) IV ONE (04:35)
== END 2021-03-24 06:20 | disposition home or self-care (01) ==
LOC: M ED 01:09
DX: G43.909 Migraine, unspecified, not intractable, without status migrainosus (principal); F17.210 Nicotine dependence, cigarettes, uncomplicated
CPT/HCPCS: 96361; 96374; 96375; 99283; J1200; J1885; J2765

== ENCOUNTER → 2021-06-24 | Outpatient (REF) | payer OTHER ==
[~2021-06-24] MED LIST changes: +ESCITALOPRAM
== END ==
LOC: M WUC 20:24
PROVIDERS: ATTEND Physician Assistant
DX: J06.9 Acute upper respiratory infection, unspecified (principal)

== ENCOUNTER 2021-08-20 09:01 | Outpatient (CLI) | payer OTHER ==
[~2021-08-20] VITALS: Ht 180.3 cm; Wt 213.6 kg
[~2021-08-20 09:01] MED LIST changes: +ALBUTEROL 90 MCG/ACT 8GM HFA INHALER INH PRN; +ALBUTEROL SULFATE 2.5 MG/0.5 ML INH NEB SOLN INH PRN; +CASIRIVIMAB (REGN10933) 600 MG, IMDEVIMAB (REGN10987) 600 MG in NS 250 ML IV ONE; +EPINEPHrine INJ 1 MG/ML 1ML AMP IM PRN; +diphenhydrAMINE 50MG/ML VIAL (J1200) IV PRN; +methylPREDNISolone 125MG 2ML VIAL IV PRN
[2021-08-20 09:45] VITALS: BP 147/89
[2021-08-20 10:15] VITALS: BP 139/73
[2021-08-20 10:45] VITALS: BP 125/74
[2021-08-20 11:45] VITALS: BP 134/73
== END 2021-08-20 11:45 | disposition home or self-care (01) ==
LOC: M OPCLI4PR 09:01
PROVIDERS: ATTEND Nurse Practitioner Family
DX: U07.1 COVID-19 (principal)

== ENCOUNTER 2022-03-24 16:03 | Emergency (ER) | payer OTHER ==
[~2022-03-24] VITALS: Ht 180.3 cm; Wt 203.2 kg
[~2022-03-24 16:03] MED LIST changes: -ALBUTEROL 90 MCG/ACT 8GM HFA INHALER INH PRN; -ALBUTEROL SULFATE 2.5 MG/0.5 ML INH NEB SOLN INH PRN; -CASIRIVIMAB (REGN10933) 600 MG, IMDEVIMAB (REGN10987) 600 MG in NS 250 ML IV ONE; +CHLO1TAB35 PO; -CORITAB5 PO; -EPINEPHrine INJ 1 MG/ML 1ML AMP IM PRN; -diphenhydrAMINE 50MG/ML VIAL (J1200) IV PRN; -methylPREDNISolone 125MG 2ML VIAL IV PRN
[2022-03-24 16:04] VITALS: BP 132/80
[2022-03-24] MEDS ORDERED: LISI10TA22 (16:11)
[2022-03-24] MEDS ORDERED: METF10004 (16:11)
[2022-03-24] MEDS ORDERED: KETO10TAB (16:11)
[2022-03-24] MEDS ORDERED: MAGN500T2 (16:11)
[2022-03-24 16:52] LABS: BASO % 0.3 % (0.0-1.0); EOS # 0.1 10^3/uL (0.0-0.5); EOS % 0.5 % (0.0-3.0); HEMATOCRIT 40.3 % (36.0-47.0); HEMOGLOBIN 13.2 g/dl (12.0-15.5); LYMPH # 2.8 10^3/uL (1.5-5.0); LYMPH % 19.7 % (24.0-44.0); MEAN CORPUSCULAR HEMOGLOBIN 26.3 pg (27.0-33.0); MEAN CORPUSCULAR HGB CONC 32.8 g/dl (32.0-36.5); MEAN CORPUSCULAR VOLUME 80.4 fl (80.0-96.0); MONO # 0.7 10^3/uL (0.0-0.8); MONO % 4.6 % (2.0-8.0); NEUTROPHILS # 10.5 10^3/uL (1.5-8.5); NEUTROPHILS % 74.2 % (36.0-66.0); PLATELET COUNT, AUTOMATED 358 10^3/uL (150-450); RED BLOOD COUNT 5.01 10^6/uL (4.00-5.40); WHITE BLOOD COUNT 14.2 10^3/uL (4.0-10.0)
[2022-03-24] MEDS ORDERED: KETOROLAC 30 MG/ML 1ML VIAL IV ONE (17:00)
[2022-03-24 17:06] LABS: HCG, SERUM QUALITATIVE NEGATIVE (NEGATIVE)
[2022-03-24 17:13] LABS: ALBUMIN 3.1 GM/DL (3.2-5.2); ALT/SGPT 88 U/L (12-78); BILIRUBIN,DIRECT 0.3 MG/DL (0.0-0.2); BILIRUBIN,TOTAL 1.9 MG/DL (0.2-1.0); BLOOD UREA NITROGEN 8 MG/DL (7-18); CALCIUM LEVEL 9.2 MG/DL (8.5-10.1); CARBON DIOXIDE LEVEL 23 MEQ/L (21-32); CHLORIDE LEVEL 101 MEQ/L (98-107); CREATININE FOR GFR 0.89 MG/DL (0.55-1.30); GLOMERULAR FILTRATION RATE > 60.0 (>60); GLUCOSE, FASTING 207 MG/DL (70-100); LIPASE 46 U/L (73-393); POTASSIUM SERUM 4.4 MEQ/L (3.5-5.1); SODIUM LEVEL 134 MEQ/L (136-145); TOTAL PROTEIN 7.8 GM/DL (6.4-8.2)
== END 2022-03-24 17:17 | disposition left against medical advice (07) ==
LOC: M ED 16:03
DX: Z53.29 Procedure and treatment not carried out because of patient's decision for other reasons (principal)

== ENCOUNTER → 2022-04-14 | Outpatient (CLI) | payer OTHER ==
[~2022-04-14] MED LIST changes: +GASTROGRAFIN SOLUTION 30ML (Q9963) As Ordered ONE; +ISOVUE-370 76% 100ML VIAL As Ordered ONE; +KETO10TAB; +LISI10TA22; +MAGN500T2; +METF10004
== END ==
LOC: M RAD 10:46
PROVIDERS: ATTEND Nurse Practitioner Family
DX: K57.92 Diverticulitis of intestine, part unspecified, without perforation or abscess without bleeding (principal)
CPT/HCPCS: 74177; Q9963; Q9967

== ENCOUNTER 2022-07-10 22:51 | Emergency (ER) | payer OTHER ==
[~2022-07-10] VITALS: Ht 180.3 cm; Wt 199.1 kg
[~2022-07-10 22:51] MED LIST changes: -GASTROGRAFIN SOLUTION 30ML (Q9963) As Ordered ONE; -ISOVUE-370 76% 100ML VIAL As Ordered ONE
[2022-07-10 22:52] VITALS: BP 174/98
== END 2022-07-10 23:02 | disposition left against medical advice (07) ==
LOC: M ED 22:51
DX: Z53.21 Procedure and treatment not carried out due to patient leaving prior to being seen by health care provider (principal)

== ENCOUNTER 2022-07-24 22:28 | Emergency (ER) | payer OTHER ==
[~2022-07-24] VITALS: Ht 180.3 cm; Wt 195.4 kg
[2022-07-24 22:29] VITALS: BP 148/70
[2022-07-24] MEDS ORDERED: SERT25TA21 (22:39)
[2022-07-24] MEDS ORDERED: METF500T13 (22:39)
[2022-07-24 23:19] LABS: BASO % 0.3 % (0.0-1.0); EOS % 0.2 % (0.0-3.0); HEMATOCRIT 38.8 % (36.0-47.0); HEMOGLOBIN 12.4 g/dl (12.0-15.5); LYMPH # 2.1 10^3/uL (1.5-5.0); LYMPH % 14.3 % (24.0-44.0); MEAN CORPUSCULAR HEMOGLOBIN 25.9 pg (27.0-33.0); MONO # 0.8 10^3/uL (0.0-0.8); MONO % 5.2 % (2.0-8.0); NEUTROPHILS # 11.6 10^3/uL (1.5-8.5); NEUTROPHILS % 79.5 % (36.0-66.0); PLATELET COUNT, AUTOMATED 288 10^3/uL (150-450); RED BLOOD COUNT 4.79 10^6/uL (4.00-5.40); WHITE BLOOD COUNT 14.6 10^3/uL (4.0-10.0)
[2022-07-24 23:40] LABS: BLOOD UREA NITROGEN 11 MG/DL (7-18); CALCIUM LEVEL 8.5 MG/DL (8.5-10.1); CARBON DIOXIDE LEVEL 25 MEQ/L (21-32); CHLORIDE LEVEL 99 MEQ/L (98-107); CREATININE FOR GFR 1.03 MG/DL (0.55-1.30); GLOMERULAR FILTRATION RATE > 60.0 (>60); GLUCOSE, FASTING 183 MG/DL (70-100); POTASSIUM SERUM 4.2 MEQ/L (3.5-5.1); SODIUM LEVEL 130 MEQ/L (136-145)
== END 2022-07-24 23:49 | disposition left against medical advice (07) ==
LOC: M ED 22:28
DX: Z53.21 Procedure and treatment not carried out due to patient leaving prior to being seen by health care provider (principal)

== ENCOUNTER → 2022-11-09 | Outpatient (REF) | payer OTHER, MEDICAID ==
[~2022-11-09] MED LIST changes: +LIDO15SO4 PO; -LIDO2SOL17 PO; +METF500T13; +SERT25TA21
[2022-11-09 16:33] LABS: BASO % 0.4 % (0.0-1.0); EOS # 0.3 10^3/uL (0.0-0.5); EOS % 4.3 % (0.0-3.0); HEMATOCRIT 41.3 % (36.0-47.0); HEMOGLOBIN 13.3 g/dl (12.0-15.5); LYMPH # 2.8 10^3/uL (1.5-5.0); LYMPH % 35.9 % (24.0-44.0); MEAN CORPUSCULAR HEMOGLOBIN 26.8 pg (27.0-33.0); MEAN CORPUSCULAR HGB CONC 32.2 g/dl (32.0-36.5); MEAN CORPUSCULAR VOLUME 83.1 fl (80.0-96.0); MONO # 0.5 10^3/uL (0.0-0.8); MONO % 5.8 % (2.0-8.0); NEUTROPHILS # 4.1 10^3/uL (1.5-8.5); NEUTROPHILS % 53.2 % (36.0-66.0); PLATELET COUNT, AUTOMATED 271 10^3/uL (150-450); RED BLOOD COUNT 4.97 10^6/uL (4.00-5.40); WHITE BLOOD COUNT 7.7 10^3/uL (4.0-10.0)
[2022-11-09 22:24] LABS: ALBUMIN 3.1 G/DL (3.2-5.2); ALKALINE PHOSPHATASE 69 U/L (46-116); ALT/SGPT 46 U/L (7.0-40); AST/SGOT 35 U/L (<34); BILIRUBIN,TOTAL 1.2 MG/DL (0.3-1.2); BLOOD UREA NITROGEN 9 MG/DL (9-23); CALCIUM LEVEL 8.7 MG/DL (8.5-10.1); CARBON DIOXIDE LEVEL 26 MMOL/L (20-31); CHLORIDE LEVEL 99 MMOL/L (98-107); CHOLESTEROL LEVEL 193 MG/DL (<200); CHOLESTEROL RISK RATIO 6.01 (<5); CREATININE FOR GFR 0.58 MG/DL (0.55-1.30); GLOMERULAR FILTRATION RATE > 60.0 (>60); GLUCOSE, FASTING 255 MG/DL (60-100); HDL CHOLESTEROL 32.1 MG/DL (>40); LDL CHOLESTEROL 118.5 MG/DL (<100); MAGNESIUM LEVEL 1.6 MG/DL (1.8-2.4); NON-HDL-C 161 MG/DL; POTASSIUM SERUM 4.2 MMOL/L (3.5-5.1); SODIUM LEVEL 133 MMOL/L (136-145); TOTAL PROTEIN 7.1 G/DL (5.7-8.2); TRIGLYCERIDES LEVEL 212 MG/DL (<150)
[2022-11-09 22:26] LABS: THYROID STIMULATING HORMONE 2.339 uIU/ML (0.55-4.78)
== END ==
LOC: M LAB REF 16:08
PROVIDERS: ATTEND Nurse Practitioner Family
DX: Z13.228 Encounter for screening for other metabolic disorders (principal)

== ENCOUNTER → 2023-03-24 | Outpatient (REF) | payer OTHER ==
[~2023-03-24] MED LIST changes: +ALBU8.5H INH; +DIAZ10TA2 PO; +ERGO500029 PO; +LIDO15SO PO; -LIDO15SO4 PO; +METF10004 PO; +TRUL10IN; +ZOLO100T PO
[2023-03-24 12:51] LABS: HEMOGLOBIN A1c 11.4 % (4.0-6.0)
[2023-03-24 12:53] LABS: ALBUMIN 3.1 G/DL (3.2-5.2); ALKALINE PHOSPHATASE 64 U/L (46-116); ALT/SGPT 53 U/L (7.0-40); AST/SGOT 50 U/L (<34); BILIRUBIN,TOTAL 1.2 MG/DL (0.3-1.2); BLOOD UREA NITROGEN 10 MG/DL (9-23); CALCIUM LEVEL 8.4 MG/DL (8.5-10.1); CARBON DIOXIDE LEVEL 27 MMOL/L (20-31); CHLORIDE LEVEL 103 MMOL/L (98-107); CHOLESTEROL LEVEL 194 MG/DL (<200); CHOLESTEROL RISK RATIO 5.96 (<5); CREATININE FOR GFR 0.58 MG/DL (0.55-1.30); GLOMERULAR FILTRATION RATE > 60.0 (>60); GLUCOSE, FASTING 270 MG/DL (60-100); HDL CHOLESTEROL 32.5 MG/DL (>40); LDL CHOLESTEROL 94.9 MG/DL (<100); NON-HDL-C 161.5 MG/DL; POTASSIUM SERUM 4.1 MMOL/L (3.5-5.1); SODIUM LEVEL 135 MMOL/L (136-145); TRIGLYCERIDES LEVEL 333 MG/DL (<150)
== END ==
LOC: M LAB REF 12:13
PROVIDERS: ATTEND Nurse Practitioner Family
DX: E11.9 Type 2 diabetes mellitus without complications (principal); R79.89 Other specified abnormal findings of blood chemistry

== ENCOUNTER → 2023-08-09 | Outpatient (REF) | payer OTHER ==
[~2023-08-09] MED LIST changes: +ATOR1TAB21; +CLON1TAB8; +TRAZ-252; +VALA500T5; +VITA200032
[2023-08-09 18:23] LABS: CREATININE, URINE 91.2 MG/DL; MAU/CREAT RATIO 19.7 MCG/MG (0.0-30.0)
[2023-08-09 18:26] LABS: ALBUMIN 3.1 G/DL (3.2-5.2); ALKALINE PHOSPHATASE 67 U/L (46-116); ALT/SGPT 40 U/L (7.0-40); AST/SGOT 28 U/L (<34); BILIRUBIN,TOTAL 0.7 MG/DL (0.3-1.2); BLOOD UREA NITROGEN 8 MG/DL (9-23); CALCIUM LEVEL 8.6 MG/DL (8.5-10.1); CARBON DIOXIDE LEVEL 25 MMOL/L (20-31); CHLORIDE LEVEL 100 MMOL/L (98-107); CREATININE FOR GFR 0.63 MG/DL (0.55-1.30); GLOMERULAR FILTRATION RATE > 60.0 (>60); GLUCOSE, FASTING 313 MG/DL (60-100); POTASSIUM SERUM 4.2 MMOL/L (3.5-5.1); SODIUM LEVEL 134 MMOL/L (136-145)
[2023-08-09 18:58] LABS: HEMOGLOBIN A1c 10.5 % (4.0-6.0)
== END ==
LOC: M LAB REF 16:35
PROVIDERS: ATTEND Nurse Practitioner Family
DX: E11.69 Type 2 diabetes mellitus with other specified complication (principal)

== ENCOUNTER → 2023-11-15 | Outpatient (REF) | payer OTHER ==
[~2023-11-15] MED LIST changes: -CORTCRE TOP; +HYDR28CR42 TOP
[2023-11-15 21:55] LABS: APPEARANCE, URINE HAZY (CLEAR); BACTERIA, URINE AUTO NEGATIVE (NEGATIVE); BILIRUBIN, URINE AUTO NEGATIVE (NEGATIVE); BLOOD, URINE BLOOD 3+ (NEGATIVE); COLOR, URINE YELLOW (YELLOW); GLUCOSE, URINE (UA) AUTO 3+ mg/dL (NEGATIVE); KETONE, URINE AUTO NEGATIVE (NEGATIVE); LEUKOCYTE ESTERASE, URINE AUTO 2+ (NEGATIVE); NITRITE, URINE AUTO NEGATIVE (NEGATIVE); PROTEIN, URINE AUTO 2+ mg/dL (NEGATIVE); RBC, URINE AUTO 61 /HPF (0-3); SPECIFIC GRAVITY URINE AUTO 1.031 (1.002-1.035); SQUAMOUS EPITHELIAL CELL UR AU 15 /HPF (0-6); UROBILINOGEN, URINE AUTO 0.2 mg/dL (0.0-2.0); WBC, URINE AUTO 109 /HPF (0-3)
== END ==
LOC: M LAB REF 21:09
PROVIDERS: ATTEND Physician Assistant
DX: N39.0 Urinary tract infection, site not specified (principal)

== ENCOUNTER → 2024-01-29 | Outpatient (REF) | payer OTHER ==
[~2024-01-29] MED LIST changes: -LIDO15SO PO; +LIDO15SO8 PO
[2024-01-29 18:14] LABS: BASO % 0.3 % (0.0-1.0); EOS # 0.2 10^3/uL (0.0-0.5); EOS % 3.2 % (0.0-3.0); HEMATOCRIT 40.1 % (36.0-47.0); HEMOGLOBIN 13.2 g/dl (12.0-15.5); LYMPH # 2.6 10^3/uL (1.5-5.0); MEAN CORPUSCULAR HEMOGLOBIN 28.9 pg (27.0-33.0); MEAN CORPUSCULAR HGB CONC 32.9 g/dl (32.0-36.5); MEAN CORPUSCULAR VOLUME 87.9 fl (80.0-96.0); MONO # 0.5 10^3/uL (0.0-0.8); MONO % 7.5 % (2.0-8.0); NEUTROPHILS # 2.9 10^3/uL (1.5-8.5); NEUTROPHILS % 46.4 % (36.0-66.0); PLATELET COUNT, AUTOMATED 212 10^3/uL (150-450); RED BLOOD COUNT 4.56 10^6/uL (4.00-5.40); WHITE BLOOD COUNT 6.2 10^3/uL (4.0-10.0)
[2024-01-29 18:34] LABS: HEMOGLOBIN A1c 11.2 % (4.0-6.0)
[2024-01-29 18:53] LABS: THYROID STIMULATING HORMONE 2.731 uIU/ML (0.55-4.78)
[2024-01-29 18:54] LABS: TOTAL 25(OH) VITAMIN D 18.7 NG/ML (20.0-100.0)
[2024-01-29 19:05] LABS: ALBUMIN 2.6 G/DL (3.2-5.2); ALKALINE PHOSPHATASE 70 U/L (46-116); ALT/SGPT 113 U/L (7.0-40); AST/SGOT 80 U/L (<34); BILIRUBIN,TOTAL 0.6 MG/DL (0.3-1.2); BLOOD UREA NITROGEN 8 MG/DL (9-23); CALCIUM LEVEL 8.5 MG/DL (8.5-10.1); CARBON DIOXIDE LEVEL 24 MMOL/L (20-31); CHLORIDE LEVEL 100 MMOL/L (98-107); CHOLESTEROL LEVEL 184 MG/DL (<200); CHOLESTEROL RISK RATIO 6.45 (<5); CREATININE FOR GFR 0.54 MG/DL (0.55-1.30); GLOMERULAR FILTRATION RATE > 60.0 (>60); GLUCOSE, FASTING 414 MG/DL (60-100); HDL CHOLESTEROL 28.5 MG/DL (>40); MAGNESIUM LEVEL 1.5 MG/DL (1.8-2.4); NON-HDL-C 155.5 MG/DL; SODIUM LEVEL 133 MMOL/L (136-145); TOTAL PROTEIN 6.5 G/DL (5.7-8.2); TRIGLYCERIDES LEVEL 434 MG/DL (<150)
== END ==
LOC: M LAB REF 16:20
PROVIDERS: ATTEND Nurse Practitioner Family
DX: E55.9 Vitamin D deficiency, unspecified (principal); E66.01 Morbid (severe) obesity due to excess calories

== ENCOUNTER → 2024-05-08 | Outpatient (REF) | payer OTHER ==
[2024-05-08 13:37] LABS: CREATININE, URINE 98.6 MG/DL; MAU/CREAT RATIO 9.1 MCG/MG (0.0-30.0)
[2024-05-08 14:23] LABS: BASO % 0.3 % (0.0-1.0); EOS # 0.4 10^3/uL (0.0-0.5); EOS % 4.9 % (0.0-3.0); HEMATOCRIT 43.7 % (36.0-47.0); HEMOGLOBIN 14.4 g/dl (12.0-15.5); LYMPH # 3.8 10^3/uL (1.5-5.0); LYMPH % 47.6 % (24.0-44.0); MEAN CORPUSCULAR HEMOGLOBIN 28.3 pg (27.0-33.0); MONO # 0.4 10^3/uL (0.0-0.8); MONO % 5.6 % (2.0-8.0); NEUTROPHILS # 3.3 10^3/uL (1.5-8.5); NEUTROPHILS % 41.3 % (36.0-66.0); PLATELET COUNT, AUTOMATED 238 10^3/uL (150-450); RED BLOOD COUNT 5.08 10^6/uL (4.00-5.40); WHITE BLOOD COUNT 7.9 10^3/uL (4.0-10.0)
[2024-05-08 14:55] LABS: ALBUMIN 3.1 G/DL (3.2-5.2); ALKALINE PHOSPHATASE 69 U/L (46-116); ALT/SGPT 48 U/L (7.0-40); AST/SGOT 22 U/L (<34); BILIRUBIN,DIRECT 0.3 MG/DL (<0.4); BILIRUBIN,TOTAL 1.2 MG/DL (0.3-1.2); BLOOD UREA NITROGEN 8 MG/DL (9-23); CALCIUM LEVEL 8.6 MG/DL (8.5-10.1); CARBON DIOXIDE LEVEL 25 MMOL/L (20-31); CHLORIDE LEVEL 104 MMOL/L (98-107); CHOLESTEROL LEVEL 190 MG/DL (<200); CHOLESTEROL RISK RATIO 5.99 (<5); CREATININE FOR GFR 0.57 MG/DL (0.55-1.30); GLOMERULAR FILTRATION RATE > 60.0 (>60); GLUCOSE, FASTING 335 MG/DL (60-100); HDL CHOLESTEROL 31.7 MG/DL (>40); HEMOGLOBIN A1c 10.4 % (4.0-6.0); LDL CHOLESTEROL 87.7 MG/DL (<100); MAGNESIUM LEVEL 1.6 MG/DL (1.8-2.4); NON-HDL-C 158.3 MG/DL; POTASSIUM SERUM 4.3 MMOL/L (3.5-5.1); SODIUM LEVEL 136 MMOL/L (136-145); TRIGLYCERIDES LEVEL 353 MG/DL (<150)
[2024-05-08 14:58] LABS: THYROID STIMULATING HORMONE 1.456 uIU/ML (0.55-4.78)
== END ==
LOC: M LAB REF 12:21
PROVIDERS: ATTEND Nurse Practitioner Family
DX: E11.69 Type 2 diabetes mellitus with other specified complication (principal); R16.2 Hepatomegaly with splenomegaly, not elsewhere classified; E66.3 Overweight

== ENCOUNTER 2024-06-06 23:01 | Emergency (ER) | payer OTHER ==
[~2024-06-06] VITALS: Ht 180.3 cm; Wt 195.8 kg
[2024-06-06 23:01] VITALS: BP 148/90; TEMP 97.1; O2SAT 97
== END 2024-06-07 02:00 | disposition left against medical advice (07) ==
LOC: M ED 23:01
DX: Z53.21 Procedure and treatment not carried out due to patient leaving prior to being seen by health care provider (principal)

== ENCOUNTER 2024-06-28 13:14 | Emergency (ER) | payer OTHER ==
[~2024-06-28] VITALS: Ht 180.3 cm; Wt 195.0 kg
[2024-06-28 14:06] LABS: BASO % 0.4 % (0.0-1.0); EOS # 0.3 10^3/uL (0.0-0.5); EOS % 3.5 % (0.0-3.0); HEMATOCRIT 43.3 % (36.0-47.0); HEMOGLOBIN 14.5 g/dl (12.0-15.5); LYMPH # 2.4 10^3/uL (1.5-5.0); LYMPH % 30.4 % (24.0-44.0); MEAN CORPUSCULAR HEMOGLOBIN 28.7 pg (27.0-33.0); MEAN CORPUSCULAR HGB CONC 33.5 g/dl (32.0-36.5); MEAN CORPUSCULAR VOLUME 85.7 fl (80.0-96.0); MONO # 0.5 10^3/uL (0.0-0.8); MONO % 5.9 % (2.0-8.0); NEUTROPHILS # 4.7 10^3/uL (1.5-8.5); NEUTROPHILS % 59.3 % (36.0-66.0); PLATELET COUNT, AUTOMATED 244 10^3/uL (150-450); RED BLOOD COUNT 5.05 10^6/uL (4.00-5.40); WHITE BLOOD COUNT 7.9 10^3/uL (4.0-10.0)
[2024-06-28] MEDS: ACETAMINOPHEN 500 MG TAB PO ONE (14:17)
[2024-06-28 14:22] LABS: HCG, SERUM QUALITATIVE NEGATIVE (NEGATIVE)
[2024-06-28 14:25] LABS: BLOOD UREA NITROGEN 10 MG/DL (9-23); CARBON DIOXIDE LEVEL 24 MMOL/L (20-31); CHLORIDE LEVEL 102 MMOL/L (98-107); CREATININE FOR GFR 0.55 MG/DL (0.55-1.30); GLOMERULAR FILTRATION RATE > 60.0 (>60); GLUCOSE, FASTING 316 MG/DL (60-100); POTASSIUM SERUM 4.2 MMOL/L (3.5-5.1); SODIUM LEVEL 132 MMOL/L (136-145)
[2024-06-28] MEDS: KETOROLAC 30 MG/ML 1ML VIAL IV ONE (16:08)
[2024-06-28 16:09] LABS: Trichomonas vaginalis (AMP) NOT DETECTED (NEGATIVE)
[2024-06-28 16:33] LABS: GC DNA AMPLIFICATION NEGATIVE (NEGATIVE)
[2024-06-28] MEDS ORDERED: NAPR-837 PO (16:55)
[2024-06-28 17:22] VITALS: BP 135/82; TEMP 98; O2SAT 96
== END 2024-06-28 17:24 | disposition home or self-care (01) ==
LOC: EDBD 13:14 → M ED 13:14
DX: R10.2 Pelvic and perineal pain (principal); N93.9 Abnormal uterine and vaginal bleeding, unspecified; E11.9 Type 2 diabetes mellitus without complications; I10 Essential (primary) hypertension; J45.909 Unspecified asthma, uncomplicated; F31.9 Bipolar disorder, unspecified; F17.210 Nicotine dependence, cigarettes, uncomplicated; Z79.51 Long term (current) use of inhaled steroids; Z79.4 Long term (current) use of insulin; Z79.84 Long term (current) use of oral hypoglycemic drugs; Z79.899 Other long term (current) drug therapy
CPT/HCPCS: 76830; 76856; 80048; 81001; 84703; 85025; 86850; 86900; 86901; 87086; 87661; 87810; 87850; 93976; 96374; 99284; J1885

== ENCOUNTER → 2024-07-15 | Outpatient (REF) | payer OTHER | LOC: M LAB REF 16:13 | PROVIDERS: ATTEND Physician Assistant Medical | DX: B34.9 Viral infection, unspecified (principal) ==

== ENCOUNTER 2024-07-29 20:54 | Emergency (ER) | payer OTHER ==
[~2024-07-29] VITALS: Ht 180.3 cm; Wt 196.8 kg
[2024-07-29 20:58] VITALS: TEMP 99.4; O2SAT 95
[2024-07-29 21:01] VITALS: BP 111/75
== END 2024-07-29 23:29 | disposition left against medical advice (07) ==
LOC: M ED 20:54
DX: Z53.21 Procedure and treatment not carried out due to patient leaving prior to being seen by health care provider (principal)

== ENCOUNTER 2024-08-12 19:49 | Emergency (ER) | payer OTHER ==
[~2024-08-12] VITALS: Ht 180.3 cm; Wt 194.3 kg
[2024-08-12 20:00] VITALS: TEMP 98
[2024-08-12] MEDS ORDERED: KETO10TAB PO (20:14)
[2024-08-12 21:17] LABS: BASO % 0.5 % (0.0-1.0); EOS # 0.3 10^3/uL (0.0-0.5); EOS % 3.4 % (0.0-3.0); HEMATOCRIT 44.6 % (36.0-47.0); HEMOGLOBIN 15.5 g/dl (12.0-15.5); LYMPH # 3.4 10^3/uL (1.5-5.0); LYMPH % 38.4 % (24.0-44.0); MEAN CORPUSCULAR HEMOGLOBIN 29.5 pg (27.0-33.0); MEAN CORPUSCULAR HGB CONC 34.8 g/dl (32.0-36.5); MONO # 0.5 10^3/uL (0.0-0.8); MONO % 5.8 % (2.0-8.0); NEUTROPHILS # 4.6 10^3/uL (1.5-8.5); NEUTROPHILS % 51.6 % (36.0-66.0); PLATELET COUNT, AUTOMATED 277 10^3/uL (150-450); RED BLOOD COUNT 5.25 10^6/uL (4.00-5.40); WHITE BLOOD COUNT 8.9 10^3/uL (4.0-10.0)
[2024-08-12 21:40] LABS: LIPASE 36 U/L (12-53)
[2024-08-12 21:42] LABS: ALBUMIN 3.1 G/DL (3.2-5.2); ALKALINE PHOSPHATASE 69 U/L (35-104); ALT/SGPT 36 U/L (7.0-40); AST/SGOT 20 U/L (<34); BILIRUBIN,DIRECT 0.2 MG/DL (<0.4); BLOOD UREA NITROGEN 12 MG/DL (9-23); CALCIUM LEVEL 9.2 MG/DL (8.5-10.1); CARBON DIOXIDE LEVEL 27 MMOL/L (20-31); CHLORIDE LEVEL 101 MMOL/L (98-107); CREATININE FOR GFR 0.52 MG/DL (0.55-1.30); GLOMERULAR FILTRATION RATE > 60.0 (>60); GLUCOSE, FASTING 258 MG/DL (60-100); POTASSIUM SERUM 4.6 MMOL/L (3.5-5.1); SODIUM LEVEL 135 MMOL/L (136-145); TOTAL PROTEIN 7.4 G/DL (5.7-8.2)
[2024-08-12 21:50] LABS: HCG, SERUM QUALITATIVE NEGATIVE (NEGATIVE)
[2024-08-12] MEDS ORDERED: ISOVUE-370 76% 100ML VIAL As Ordered ONE (23:06)
[2024-08-12] MEDS: ONDANSETRON 4MG 2ML VIAL IV ONE (23:11)
[2024-08-12] MEDS: MORPHINE 4 MG/ML 1ML VIAL IV ONE (23:15)
[2024-08-13 01:00] VITALS: BP 132/76; O2SAT 95
== END 2024-08-13 01:19 | disposition home or self-care (01) ==
LOC: M ED 19:49
DX: R10.32 Left lower quadrant pain (principal); K58.9 Irritable bowel syndrome, unspecified; J45.909 Unspecified asthma, uncomplicated; F31.9 Bipolar disorder, unspecified; F17.210 Nicotine dependence, cigarettes, uncomplicated; Z88.8 Allergy status to other drugs, medicaments and biological substances; Z79.51 Long term (current) use of inhaled steroids; Z79.4 Long term (current) use of insulin; Z79.84 Long term (current) use of oral hypoglycemic drugs; Z79.899 Other long term (current) drug therapy
CPT/HCPCS: 74177; 76856; 80048; 80076; 83690; 84703; 85025; 96374; 96375; 99284; J2405; Q9967

== ENCOUNTER 2024-09-16 18:30 | Emergency (ER) | payer OTHER ==
[~2024-09-16] VITALS: Ht 180.3 cm; Wt 194.9 kg
[2024-09-16 18:33] VITALS: BP 161/93; TEMP 96.4; O2SAT 97
[2024-09-16 19:31] LABS: BASO % 0.5 % (0.0-1.0); EOS # 0.3 10^3/uL (0.0-0.5); EOS % 3.6 % (0.0-3.0); HEMATOCRIT 45.7 % (36.0-47.0); HEMOGLOBIN 15.5 g/dl (12.0-15.5); LYMPH # 3.7 10^3/uL (1.5-5.0); MEAN CORPUSCULAR HEMOGLOBIN 28.9 pg (27.0-33.0); MEAN CORPUSCULAR HGB CONC 33.9 g/dl (32.0-36.5); MEAN CORPUSCULAR VOLUME 85.3 fl (80.0-96.0); MONO # 0.5 10^3/uL (0.0-0.8); MONO % 6.5 % (2.0-8.0); NEUTROPHILS # 3.6 10^3/uL (1.5-8.5); PLATELET COUNT, AUTOMATED 238 10^3/uL (150-450); RED BLOOD COUNT 5.36 10^6/uL (4.00-5.40); WHITE BLOOD COUNT 8.1 10^3/uL (4.0-10.0)
[2024-09-16 19:54] LABS: HCG, SERUM QUALITATIVE NEGATIVE (NEGATIVE)
[2024-09-16] MEDS ORDERED: ONDA-282 PO (20:47)
== END 2024-09-16 20:53 | disposition home or self-care (01) ==
LOC: M ED 18:30
DX: E11.65 Type 2 diabetes mellitus with hyperglycemia (principal); I10 Essential (primary) hypertension; F17.210 Nicotine dependence, cigarettes, uncomplicated; R11.2 Nausea with vomiting, unspecified; R19.7 Diarrhea, unspecified; Z88.8 Allergy status to other drugs, medicaments and biological substances; Z79.51 Long term (current) use of inhaled steroids; Z79.4 Long term (current) use of insulin; Z79.84 Long term (current) use of oral hypoglycemic drugs; Z79.899 Other long term (current) drug therapy

== ENCOUNTER 2024-09-23 09:41 | Emergency (ER) | payer OTHER ==
[~2024-09-23] VITALS: Ht 180.3 cm; Wt 195.8 kg
[~2024-09-23 09:41] MED LIST changes: +ONDA-282 PO
[2024-09-23] MEDS ORDERED: MUCI600T31 PO (09:52)
[2024-09-23] MEDS ORDERED: SEMA3TAB4 (09:52)
[2024-09-23] MEDS ORDERED: ALBU2.5V10 (09:52)
[2024-09-23] MEDS: IPRATROPIUM 0.5MG/ALBUTEROL 2.5MG INH SOL UD 3ML (DUONEB) NEB ONE (11:59)
[2024-09-23] MEDS ORDERED: PRED20TA PO (12:19)
[2024-09-23] MEDS ORDERED: IPRA0.00 NEB (12:21)
[2024-09-23 13:16] VITALS: BP 141/81; O2SAT 95
[2024-09-23 13:32] VITALS: TEMP 97.2
== END 2024-09-23 13:33 | disposition home or self-care (01) ==
LOC: M ED 09:41
DX: J20.9 Acute bronchitis, unspecified (principal); B34.1 Enterovirus infection, unspecified; I10 Essential (primary) hypertension; K21.9 Gastro-esophageal reflux disease without esophagitis; F17.210 Nicotine dependence, cigarettes, uncomplicated; Z88.8 Allergy status to other drugs, medicaments and biological substances; Z79.51 Long term (current) use of inhaled steroids; Z79.84 Long term (current) use of oral hypoglycemic drugs; Z79.52 Long term (current) use of systemic steroids; Z79.4 Long term (current) use of insulin; Z79.899 Other long term (current) drug therapy

== ENCOUNTER 2024-10-29 18:13 | Emergency (ER) | payer OTHER ==
[~2024-10-29] VITALS: Ht 180.3 cm; Wt 194.0 kg
[~2024-10-29 18:13] MED LIST changes: +ALBU2.5V10; +IPRA0.00 NEB; +MUCI600T31 PO; +SEMA3TAB4
[2024-10-29 18:29] VITALS: BP 139/95; TEMP 97.9; O2SAT 95
[2024-10-29] MEDS ORDERED: ACET-907 PO (18:33)
== END 2024-10-29 18:43 | disposition left against medical advice (07) ==
LOC: M ED 18:13
DX: Z53.21 Procedure and treatment not carried out due to patient leaving prior to being seen by health care provider (principal)

== ENCOUNTER → 2024-12-10 | Outpatient (REF) | payer OTHER ==
[~2024-12-10] MED LIST changes: +ACET-907 PO
[2024-12-10 17:00] LABS: BASO % 0.4 % (0.0-1.0); EOS # 0.3 10^3/uL (0.0-0.5); EOS % 4.3 % (0.0-3.0); HEMATOCRIT 44.9 % (36.0-47.0); HEMOGLOBIN 15.1 g/dl (12.0-15.5); LYMPH # 2.7 10^3/uL (1.5-5.0); LYMPH % 38.7 % (24.0-44.0); MEAN CORPUSCULAR HEMOGLOBIN 30.3 pg (27.0-33.0); MEAN CORPUSCULAR HGB CONC 33.6 g/dl (32.0-36.5); MEAN CORPUSCULAR VOLUME 90.2 fl (80.0-96.0); MONO # 0.4 10^3/uL (0.0-0.8); MONO % 6.4 % (2.0-8.0); NEUTROPHILS # 3.4 10^3/uL (1.5-8.5); NEUTROPHILS % 49.8 % (36.0-66.0); PLATELET COUNT, AUTOMATED 235 10^3/uL (150-450); RED BLOOD COUNT 4.98 10^6/uL (4.00-5.40); WHITE BLOOD COUNT 6.9 10^3/uL (4.0-10.0)
[2024-12-10 17:24] LABS: ALBUMIN 3.1 G/DL (3.2-5.2); ALKALINE PHOSPHATASE 71 U/L (35-104); ALT/SGPT 68 U/L (7.0-40); AST/SGOT 42 U/L (<34); BLOOD UREA NITROGEN 7 MG/DL (9-23); CALCIUM LEVEL 8.6 MG/DL (8.5-10.1); CARBON DIOXIDE LEVEL 25 MMOL/L (20-31); CHLORIDE LEVEL 101 MMOL/L (98-107); CHOLESTEROL LEVEL 207 MG/DL (<200); CHOLESTEROL RISK RATIO 6.96 (<5); CREATININE FOR GFR 0.58 MG/DL (0.55-1.30); GLOMERULAR FILTRATION RATE > 60.0 (>60); GLUCOSE, FASTING 291 MG/DL (60-100); HDL CHOLESTEROL 29.7 MG/DL (>40); LDL CHOLESTEROL 97.9 MG/DL (<100); MAGNESIUM LEVEL 1.7 MG/DL (1.8-2.4); NON-HDL-C 177.3 MG/DL; POTASSIUM SERUM 4.3 MMOL/L (3.5-5.1); SODIUM LEVEL 138 MMOL/L (136-145); TOTAL PROTEIN 7.2 G/DL (5.7-8.2); TRIGLYCERIDES LEVEL 397 MG/DL (<150)
[2024-12-10 17:26] LABS: THYROID STIMULATING HORMONE 2.207 uIU/ML (0.55-4.78)
[2024-12-10 17:38] LABS: HEMOGLOBIN A1c 11.3 % (4.0-6.0)
== END ==
LOC: M LAB REF 15:25
PROVIDERS: ATTEND Nurse Practitioner Family
DX: E66.01 Morbid (severe) obesity due to excess calories (principal)

== ENCOUNTER → 2025-01-13 | Outpatient (CLI) | payer OTHER | LOC: M RAD 11:53 | PROVIDERS: ATTEND Nurse Practitioner Family | DX: R39.9 Unspecified symptoms and signs involving the genitourinary system (principal) ==

== ENCOUNTER → 2025-06-13 | Outpatient (REF) | payer OTHER ==
[~2025-06-13] MED LIST changes: -IBUP-1022 PO; +IBUP600T42 PO
[2025-06-13 19:04] LABS: CREATININE, URINE 48.1 MG/DL; MALB URINE SIEMENS 12.0 MG/L; MAU/CREAT RATIO 24.9 MCG/MG (0.0-30.0)
== END ==
LOC: M LAB REF 16:25
PROVIDERS: ATTEND Student in an Organized Health Care Education/Training Program
DX: E11.9 Type 2 diabetes mellitus without complications (principal)

== ENCOUNTER 2025-08-12 15:07 | Emergency (ER) | payer OTHER ==
[~2025-08-12] VITALS: Ht 180.3 cm; Wt 191.2 kg
[2025-08-12 15:12] VITALS: BP 133/72; TEMP 96.1; O2SAT 96
[2025-08-12 15:49] LABS: URINE PREG TEST NEGATIVE (NEGATIVE)
[2025-08-12 15:50] LABS: APPEARANCE, URINE CLEAR (CLEAR); BACTERIA, URINE AUTO NEGATIVE (NEGATIVE); BILIRUBIN, URINE AUTO NEGATIVE (NEGATIVE); BLOOD, URINE BLOOD 2+ (NEGATIVE); GLUCOSE, URINE (UA) AUTO 3+ mg/dL (NEGATIVE); KETONE, URINE AUTO NEGATIVE (NEGATIVE); LEUKOCYTE ESTERASE, URINE AUTO TRACE (NEGATIVE); NITRITE, URINE AUTO NEGATIVE (NEGATIVE); PROTEIN, URINE AUTO NEGATIVE (NEGATIVE); RBC, URINE AUTO 2 /HPF (0-3); SPECIFIC GRAVITY URINE AUTO 1.025 (1.002-1.035); SQUAMOUS EPITHELIAL CELL UR AU 2 /HPF (0-6); UROBILINOGEN, URINE AUTO 2.0 mg/dL (0.0-2.0); WBC, URINE AUTO 5 /HPF (0-3)
== END 2025-08-12 17:24 | disposition left against medical advice (07) ==
LOC: M ED 15:07
DX: Z53.21 Procedure and treatment not carried out due to patient leaving prior to being seen by health care provider (principal)

== ENCOUNTER 2025-08-22 19:34 | Emergency (ER) | payer OTHER ==
[~2025-08-22] VITALS: Ht 180.3 cm; Wt 192.2 kg
[2025-08-22 19:36] VITALS: BP 150/88; TEMP 97.4; O2SAT 96
[2025-08-22 20:18] LABS: APPEARANCE, URINE CLEAR (CLEAR); BACTERIA, URINE AUTO NEGATIVE (NEGATIVE); BILIRUBIN, URINE AUTO NEGATIVE (NEGATIVE); BLOOD, URINE BLOOD NEGATIVE (NEGATIVE); GLUCOSE, URINE (UA) AUTO 3+ mg/dL (NEGATIVE); KETONE, URINE AUTO TRACE mg/dL (NEGATIVE); LEUKOCYTE ESTERASE, URINE AUTO NEGATIVE (NEGATIVE); NITRITE, URINE AUTO NEGATIVE (NEGATIVE); PROTEIN, URINE AUTO NEGATIVE (NEGATIVE); RBC, URINE AUTO 3 /HPF (0-3); SPECIFIC GRAVITY URINE AUTO 1.024 (1.002-1.035); SQUAMOUS EPITHELIAL CELL UR AU 2 /HPF (0-6); UROBILINOGEN, URINE AUTO 0.2 mg/dL (0.0-2.0); WBC, URINE AUTO 2 /HPF (0-3)
== END 2025-08-22 20:03 | disposition left against medical advice (07) ==
LOC: M ED 19:34
DX: Z53.21 Procedure and treatment not carried out due to patient leaving prior to being seen by health care provider (principal)

== ENCOUNTER 2025-09-02 17:37 | Emergency (ER) | payer OTHER ==
[~2025-09-02] VITALS: Ht 180.3 cm; Wt 192.4 kg
[2025-09-02 17:38] VITALS: BP 175/91; TEMP 97.5; O2SAT 95
== END 2025-09-02 17:54 | disposition left against medical advice (07) ==
LOC: M ED 17:37
DX: Z53.21 Procedure and treatment not carried out due to patient leaving prior to being seen by health care provider (principal)